=== PATIENT | female | born 1945 | race African-American/Black ===

== ENCOUNTER 2017-07-29 06:41 | Emergency (ER) | payer MEDICARE, MEDICAID ==
[~2017-07-29] VITALS: Ht 154.9 cm; Wt 104.5 kg
[~2017-07-29 06:41] MED LIST: BACL10TA PO; DOCU250C91 PO; DULO30CA2 PO; ENOX40DI9 SQ; FURO40 PO; GABA-533 PO; OXYC-530 PO; PANT40TA PO; RISP.5 PO; ZOLP5 PO
[2017-07-29] MEDS ORDERED: TRAZ-147 PO (06:53)
[2017-07-29] MEDS ORDERED: HYDR-4061 PO (06:53)
[2017-07-29] MEDS ORDERED: MORPHINE SULFATE 4 MG/ML SYRINGE IM ONE (07:30)
[2017-07-29] MEDS ORDERED: LIDOCAINE HCL 5% TRANSDERMAL PATCH TD ONE (08:30)
[2017-07-29 09:44] VITALS: BP 130/72
== END 2017-07-29 09:57 | disposition home or self-care (01) ==
LOC: EMS 06:42
DX: M79.604 Pain in right leg (principal); M79.605 Pain in left leg; Z88.6 Allergy status to analgesic agent
CPT/HCPCS: 96372; 99283; J2270

== ENCOUNTER 2017-08-05 11:36 | Emergency (ER) | payer MEDICARE, MEDICAID ==
[~2017-08-05] VITALS: Ht 154.9 cm; Wt 107.3 kg
[~2017-08-05 11:36] MED LIST changes: -ENOX40DI9 SQ; +HYDR-4061 PO; -OXYC-530 PO; +TRAZ-147 PO; -ZOLP5 PO
[2017-08-05 12:51] LABS: BASOPHILS % (AUTO) 0.8 % (0.0-2.0); EOSINOPHILS % (AUTO) 2.4 % (1.0-6.0); HEMATOCRIT 38.3 % (36-46); HEMOGLOBIN 12.8 g/dL (12.0-16.0); LYMPHOCYTES # (AUTO) 2.3 K/uL (1.0-4.8); LYMPHOCYTES % (AUTO) 22.2 % (22.0-44.0); MEAN CORPUSCULAR HEMOGLOBIN 30.6 pg (26.0-34.0); MEAN CORPUSCULAR HGB CONC 33.4 G/dL (31.0-37.0); MEAN CORPUSCULAR VOLUME 91 fL (80-100); MONOCYTES # (AUTO) 0.3 K/uL (0.1-1.0); MONOCYTES % (AUTO) 2.5 % (2.0-9.0); NEUTROPHILS # (AUTO) 7.4 K/uL (1.8-7.7); NEUTROPHILS % (AUTO) 72.1 % (40.0-70.0); PLATELET COUNT (AUTO) 290 K/uL (150-450); RED BLOOD CELL COUNT(AUTO) 4.19 MIL/uL (4.00-5.20); RED CELL DISTRIBUTION WIDTH 16.3 % (11.5-14.5); WHITE BLOOD COUNT (AUTO) 10.3 K/uL (4.5-11.0)
[2017-08-05 12:59] LABS: ANION GAP 8 mmol/L (8-16); CALCIUM, TOTAL 9.3 mg/dL (8.8-10.5); CARBON DIOXIDE 28 mmol/L (22-29); CHLORIDE 107 mmol/L (98-107); CREATININE 0.74 mg/dL (0.60-1.30); GLOMERULAR FILTR. RATE CALC > 60 mL/min (>60); POTASSIUM 3.9 mmol/L (3.5-5.1); SODIUM SERUM 143 mmol/L (136-145); UREA NITROGEN, BLOOD 6 mg/dL (7-18)
[2017-08-05 13:05] LABS: ALANINE AMINOTRANSFERASE 19 U/L (12-78); ALBUMIN 3.3 g/dL (3.4-5.0); ASPARTATE AMINOTRANSFERASE 11 U/L (15-37); BILIRUBIN,TOTAL 0.2 mg/dL (0.1-1.0)
[2017-08-05] MEDS ORDERED: PHENYTOIN SODIUM 1,000 MG in SODIUM CHLORIDE 0.9% 150 ML IV ONE (13:30)
[2017-08-05] MEDS ORDERED: SODIUM CHLORIDE 0.9% 1,000 ML IV ONE (13:30)
[2017-08-05 16:53] LABS: APPEARANCE,URINE CLOUDY (CLEAR); GLUCOSE, URINE (UA) NEGATIVE (NEGATIVE); KETONES,URINE NEGATIVE (NEGATIVE); LEUKOCYTE ESTERASE ,URINE LARGE (NEGATIVE); OCCULT BLOOD,URINE SMALL (NEGATIVE); PROTEIN,URINE NEGATIVE (NEGATIVE)
[2017-08-05 16:56] LABS: ADD UA MICROSCOPIC YES; WBC,URINE 51-100 /HPF (0-5)
[2017-08-05 16:57] LABS: SQUAMOUS EPITHELIAL CELL,UR Moderate /LPF (None Seen)
[2017-08-05 19:06] VITALS: BP 152/80
[2017-08-05] MEDS ORDERED: TEMA7.5C17 PO (21:09)
== END 2017-08-05 19:19 | disposition home or self-care (01) ==
LOC: EMS 11:38
DX: G40.909 Epilepsy, unspecified, not intractable, without status epilepticus (principal); N39.0 Urinary tract infection, site not specified; M79.7 Fibromyalgia; F20.9 Schizophrenia, unspecified; F32.9 Major depressive disorder, single episode, unspecified; M19.90 Unspecified osteoarthritis, unspecified site; Z88.6 Allergy status to analgesic agent
CPT/HCPCS: 36415; 70450; 80053; 80307; 81001; 85025; 87077; 87086; 87186; 93005; 96365; 99285; J1165; J7030; J7050

== ENCOUNTER 2017-08-05 21:03 | Emergency (ER) | payer MEDICARE, MEDICAID ==
[~2017-08-05] VITALS: Ht 154.9 cm; Wt 107.3 kg
[2017-08-05] MEDS ORDERED: TEMA7.5C17 PO (21:09)
[2017-08-05 22:34] LABS: APPEARANCE,URINE TURBID (CLEAR); GLUCOSE, URINE (UA) NEGATIVE (NEGATIVE); KETONES,URINE NEGATIVE (NEGATIVE); LEUKOCYTE ESTERASE ,URINE LARGE (NEGATIVE); OCCULT BLOOD,URINE MODERATE (NEGATIVE); PH,URINE 7.5 (5.0-8.0); PROTEIN,URINE TRACE (NEGATIVE)
[2017-08-05 22:37] LABS: GLUCOSE,POINT OF CARE 82 MG/DL (70-110)
[2017-08-05 22:41] LABS: ANION GAP 8 mmol/L (8-16); CALCIUM, TOTAL 9.4 mg/dL (8.8-10.5); CARBON DIOXIDE 28 mmol/L (22-29); CHLORIDE 108 mmol/L (98-107); CREATININE 0.82 mg/dL (0.60-1.30); GLOMERULAR FILTR. RATE CALC > 60 mL/min (>60); SODIUM SERUM 144 mmol/L (136-145); UREA NITROGEN, BLOOD 6 mg/dL (7-18)
[2017-08-05 22:42] LABS: BASOPHILS % (AUTO) 0.6 % (0.0-2.0); EOSINOPHILS % (AUTO) 2.8 % (1.0-6.0); HEMATOCRIT 40.7 % (36-46); HEMOGLOBIN 13.3 g/dL (12.0-16.0); LYMPHOCYTES # (AUTO) 2.3 K/uL (1.0-4.8); LYMPHOCYTES % (AUTO) 21.8 % (22.0-44.0); MEAN CORPUSCULAR HEMOGLOBIN 30.3 pg (26.0-34.0); MEAN CORPUSCULAR HGB CONC 32.8 G/dL (31.0-37.0); MEAN CORPUSCULAR VOLUME 93 fL (80-100); MONOCYTES # (AUTO) 0.4 K/uL (0.1-1.0); NEUTROPHILS # (AUTO) 7.4 K/uL (1.8-7.7); NEUTROPHILS % (AUTO) 70.8 % (40.0-70.0); PLATELET COUNT (AUTO) 261 K/uL (150-450); RED CELL DISTRIBUTION WIDTH 16.5 % (11.5-14.5); WHITE BLOOD COUNT (AUTO) 10.5 K/uL (4.5-11.0)
[2017-08-05 22:46] LABS: WBC,URINE >100 /HPF (0-5)
[2017-08-05 22:47] LABS: ALANINE AMINOTRANSFERASE 19 U/L (12-78); ALBUMIN 3.3 g/dL (3.4-5.0); ASPARTATE AMINOTRANSFERASE 13 U/L (15-37); BILIRUBIN,TOTAL 0.3 mg/dL (0.1-1.0); SQUAMOUS EPITHELIAL CELL,UR Few /LPF (None Seen); TOTAL PROTEIN, SERUM 7.1 g/dL (6.4-8.2)
[2017-08-06 00:46] VITALS: BP 126/69
== END 2017-08-06 01:41 | disposition home or self-care (01) ==
LOC: EMS 21:05
DX: T40.2X1A Poisoning by other opioids, accidental (unintentional), initial encounter (principal); F17.210 Nicotine dependence, cigarettes, uncomplicated; Z88.6 Allergy status to analgesic agent; Y92.89 Other specified places as the place of occurrence of the external cause
CPT/HCPCS: 36415; 51701; 80053; 80307; 81001; 82948; 82962; 84484; 85025; 87077; 87086; 87186; 93005; 99285; G0480

== ENCOUNTER 2017-09-29 16:16 | Inpatient (IN) | payer MEDICARE, OTHER ==
[~2017-09-29] VITALS: Ht 157.5 cm; Wt 105.2 kg
[~2017-09-29 16:16] MED LIST changes: +TEMA7.5C17 PO
[2017-09-29 16:41] VITALS: BP 134/59
[2017-09-29 18:44] LABS: BASOPHILS % (AUTO) 0.4 % (0.0-2.0); EOSINOPHILS % (AUTO) 5.1 % (1.0-6.0); HEMOGLOBIN 13.1 g/dL (12.0-16.0); LYMPHOCYTES # (AUTO) 2.5 K/uL (1.0-4.8); LYMPHOCYTES % (AUTO) 29.5 % (22.0-44.0); MEAN CORPUSCULAR HEMOGLOBIN 30.7 pg (26.0-34.0); MEAN CORPUSCULAR HGB CONC 33.5 G/dL (31.0-37.0); MEAN CORPUSCULAR VOLUME 91 fL (80-100); MONOCYTES # (AUTO) 0.4 K/uL (0.1-1.0); MONOCYTES % (AUTO) 4.2 % (2.0-9.0); NEUTROPHILS # (AUTO) 5.1 K/uL (1.8-7.7); NEUTROPHILS % (AUTO) 60.8 % (40.0-70.0); PLATELET COUNT (AUTO) 251 K/uL (150-450); RED BLOOD CELL COUNT(AUTO) 4.27 MIL/uL (4.00-5.20); RED CELL DISTRIBUTION WIDTH 15.1 % (11.5-14.5); WHITE BLOOD COUNT (AUTO) 8.4 K/uL (4.5-11.0)
[2017-09-29 19:30] LABS: ALANINE AMINOTRANSFERASE 15 U/L (12-78); ALBUMIN 3.7 g/dL (3.4-5.0); ANION GAP 6 mmol/L (8-16); ASPARTATE AMINOTRANSFERASE 13 U/L (15-37); BILIRUBIN,TOTAL 0.3 mg/dL (0.1-1.0); CALCIUM, TOTAL 9.7 mg/dL (8.8-10.5); CARBON DIOXIDE 28 mmol/L (22-29); CHLORIDE 105 mmol/L (98-107); GLOMERULAR FILTR. RATE CALC > 60 mL/min (>60); POTASSIUM 4.1 mmol/L (3.5-5.1); SODIUM SERUM 139 mmol/L (136-145); THYROID STIMULATING HORMONE 0.86 uIU/mL (0.36-3.74); TOTAL PROTEIN, SERUM 7.5 g/dL (6.4-8.2); UREA NITROGEN, BLOOD 13 mg/dL (7-18)
[2017-09-29 20:07] VITALS: BP 122/75
[2017-09-29 20:12] LABS: GLUCOSE,POINT OF CARE 103 MG/DL (70-110)
[2017-09-29] MEDS: DOCUSATE SODIUM 250 MG CAPSULE PO SCH (20:25)
[2017-09-29] MEDS: RisperiDONE 0.5 MG TABLET PO SCH (20:25)
[2017-09-29] MEDS: GABAPENTIN 400 MG CAPSULE PO SCH (20:25)
[2017-09-29] MEDS: TEMAZEPAM 7.5 MG CAPSULE PO PRN (20:49)
[2017-09-30 00:02] VITALS: BP 123/58
[2017-09-30 05:13] VITALS: BP 115/63
[2017-09-30 07:01] VITALS: BP 112/73
[2017-09-30] MEDS: DULoxetine HCL 30 MG CAPSULE PO SCH (08:40)
[2017-09-30] MEDS: GABAPENTIN 400 MG CAPSULE PO SCH ×3 (08:41→21:33)
[2017-09-30] MEDS: PANTOPRAZOLE SODIUM 40 MG DR TABLET PO SCH (08:41)
[2017-09-30] MEDS: DOCUSATE SODIUM 250 MG CAPSULE PO SCH ×2 (08:41→21:20)
[2017-09-30] MEDS: RisperiDONE 0.5 MG TABLET PO SCH ×2 (08:41→21:19)
[2017-09-30] MEDS: FUROSEMIDE 20 MG TABLET PO SCH (08:41)
[2017-09-30 11:17] VITALS: BP 104/66
[2017-09-30] MEDS: HYDROCODONE/ACETAMINOPHEN 5-325 MG TABLET PO PRN (13:44)
[2017-09-30] MEDS: ACETAMINOPHEN 325 MG TABLET PO PRN ×2 (13:44→17:51)
[2017-09-30 15:01] VITALS: BP 110/66
[2017-09-30 20:53] VITALS: BP 111/53
[2017-09-30] MEDS: TEMAZEPAM 7.5 MG CAPSULE PO PRN (21:19)
[2017-10-01 00:28] VITALS: BP 118/53
[2017-10-01 05:03] VITALS: BP 116/57
[2017-10-01 07:24] VITALS: BP 116/67
[2017-10-01] MEDS: DOCUSATE SODIUM 250 MG CAPSULE PO SCH ×2 (08:18→20:04)
[2017-10-01] MEDS: RisperiDONE 0.5 MG TABLET PO SCH ×2 (08:18→20:04)
[2017-10-01] MEDS: DULoxetine HCL 30 MG CAPSULE PO SCH (08:18)
[2017-10-01] MEDS: GABAPENTIN 400 MG CAPSULE PO SCH ×3 (08:18→20:04)
[2017-10-01] MEDS: PANTOPRAZOLE SODIUM 40 MG DR TABLET PO SCH (08:18)
[2017-10-01] MEDS: FUROSEMIDE 20 MG TABLET PO SCH (08:19)
[2017-10-01] MEDS: HYDROCODONE/ACETAMINOPHEN 5-325 MG TABLET PO PRN ×2 (08:23→16:00)
[2017-10-01 13:02] VITALS: BP 118/54
[2017-10-01 20:05] VITALS: BP 118/54
[2017-10-01] MEDS: TEMAZEPAM 7.5 MG CAPSULE PO PRN (20:45)
[2017-10-02 00:10] VITALS: BP 117/56
[2017-10-02] MEDS: HYDROCODONE/ACETAMINOPHEN 5-325 MG TABLET PO PRN ×2 (00:25→09:19)
[2017-10-02 04:44] VITALS: BP 116/57
[2017-10-02 07:15] VITALS: BP 130/65
[2017-10-02] MEDS: RisperiDONE 0.5 MG TABLET PO SCH (09:09)
[2017-10-02] MEDS: DULoxetine HCL 30 MG CAPSULE PO SCH (09:10)
[2017-10-02] MEDS: PANTOPRAZOLE SODIUM 40 MG DR TABLET PO SCH (09:10)
[2017-10-02] MEDS: FUROSEMIDE 20 MG TABLET PO SCH (09:10)
[2017-10-02] MEDS: DOCUSATE SODIUM 250 MG CAPSULE PO SCH (09:10)
[2017-10-02] MEDS: GABAPENTIN 400 MG CAPSULE PO SCH (09:11)
[2017-10-02 11:37] VITALS: BP 120/60
[2017-10-02 14:28] LABS: GLUCOSE,POINT OF CARE 100 MG/DL (70-110)
[2017-10-02 15:25] VITALS: BP 119/62
== END 2017-10-02 16:00 | disposition home or self-care (01) | DRG 948 ==
LOC: 6N 16:40
PROVIDERS: ADMIT Internal Medicine; ATTEND Internal Medicine
DX: R53.1 Weakness (principal); E66.01 Morbid (severe) obesity due to excess calories; I48.91 Unspecified atrial fibrillation; Q78.0 Osteogenesis imperfecta; J44.9 Chronic obstructive pulmonary disease, unspecified; F20.9 Schizophrenia, unspecified; Z68.41 Body mass index [BMI] 40.0-44.9, adult; R62.7 Adult failure to thrive; R29.6 Repeated falls; G47.00 Insomnia, unspecified; K21.9 Gastro-esophageal reflux disease without esophagitis; M19.90 Unspecified osteoarthritis, unspecified site; I10 Essential (primary) hypertension; M54.16 Radiculopathy, lumbar region; F31.9 Bipolar disorder, unspecified; Z96.653 Presence of artificial knee joint, bilateral; F17.200 Nicotine dependence, unspecified, uncomplicated; Z90.710 Acquired absence of both cervix and uterus; Z98.1 Arthrodesis status; Z82.49 Family history of ischemic heart disease and other diseases of the circulatory system; Z79.899 Other long term (current) drug therapy; Z88.6 Allergy status to analgesic agent
CPT/HCPCS: 71020; 82962; 83735; 84443; 87086; 97162; 97166; 97530; 97535

== ENCOUNTER 2018-08-30 11:56 | Inpatient (IN) | payer MEDICARE, OTHER ==
[~2018-08-30 11:56] MED LIST changes: -ADV100 IH; -ALBU8HFA IH; -AZIT250T9 PO; -KDUR10 PO; -PRED5 PO
[2018-08-30 13:00] VITALS: BP 131/67
[2018-08-30] MEDS ORDERED: ALBUTEROL SULFATE 2.5 MG/0.5 ML NEB SOLUTION NEB PRN ×2 (13:45→15:30)
[2018-08-30] MEDS: ALBUTEROL SULFATE 2.5 MG/0.5 ML NEB SOLUTION NEB SCH ×2 (14:33→20:28)
[2018-08-30] MEDS: IPRATROPIUM BROMIDE 0.5 MG/2.5 ML NEB SOLUTION NEB SCH ×2 (14:34→20:28)
[2018-08-30] MEDS ORDERED: ACETAMINOPHEN 325 MG TABLET PO PRN (15:30)
[2018-08-30] MEDS ORDERED: ONDANSETRON HCL 4 MG/2 ML VIAL IVP PRN (15:30)
[2018-08-30] MEDS ORDERED: IPRATROPIUM BROMIDE 0.5 MG/2.5 ML NEB SOLUTION NEB PRN (15:30)
[2018-08-30] MEDS ORDERED: BISACODYL 10 MG RECTAL RECTAL SUPPOSITORY PR PRN (15:30)
[2018-08-30] MEDS ORDERED: MORPHINE SULFATE 2 MG/ML SYRINGE IVP PRN (15:30)
[2018-08-30] MEDS ORDERED: HYDROCODONE/ACETAMINOPHEN 5-325 MG TABLET PO PRN (15:30)
[2018-08-30] MEDS ORDERED: MAGNESIUM HYDROXIDE SUSPENSION 30 ML UDCUP PO PRN (15:30)
[2018-08-30 16:20] LABS: BASOPHILS % (AUTO) 1.2 % (0.0-2.0); EOSINOPHILS % (AUTO) 4.8 % (1.0-6.0); HEMOGLOBIN 13.8 g/dL (12.0-16.0); LYMPHOCYTES # (AUTO) 2.3 K/uL (1.0-4.8); LYMPHOCYTES % (AUTO) 33.1 % (22.0-44.0); MEAN CORPUSCULAR HEMOGLOBIN 29.7 pg (26.0-34.0); MEAN CORPUSCULAR VOLUME 90 fL (80-100); MONOCYTES # (AUTO) 0.5 K/uL (0.1-1.0); MONOCYTES % (AUTO) 7.8 % (2.0-9.0); NEUTROPHILS # (AUTO) 3.6 K/uL (1.8-7.7); NEUTROPHILS % (AUTO) 53.1 % (40.0-70.0); PLATELET COUNT (AUTO) 341 K/uL (150-450); RED BLOOD CELL COUNT(AUTO) 4.66 MIL/uL (4.00-5.20); RED CELL DISTRIBUTION WIDTH 16.7 % (11.5-14.5)
[2018-08-30 16:23] VITALS: BP 143/75
[2018-08-30] MEDS: HEPARIN SODIUM,PORCINE 5,000 UNITS/ML VIAL SQ SCH (16:29)
[2018-08-30 16:52] LABS: ANION GAP 11 mmol/L (8-16); CALCIUM, TOTAL 9.7 mg/dL (8.8-10.5); CARBON DIOXIDE 29 mmol/L (22-29); CHLORIDE 102 mmol/L (98-107); CREATININE 0.79 mg/dL (0.60-1.30); GLOMERULAR FILTR. RATE CALC > 60 mL/min (>60); GLUCOSE,RANDOM 100 mg/dL (70-110); POTASSIUM 3.2 mmol/L (3.5-5.1); SODIUM SERUM 142 mmol/L (136-145); UREA NITROGEN, BLOOD 3 mg/dL (7-18)
[2018-08-30 16:58] LABS: ALANINE AMINOTRANSFERASE 30 U/L (12-78); ALBUMIN 3.3 g/dL (3.4-5.0); ALKALINE PHOSPHATASE 83 U/L (46-116); ASPARTATE AMINOTRANSFERASE 22 U/L (15-37); BILIRUBIN,TOTAL 0.4 mg/dL (0.1-1.0); TOTAL PROTEIN, SERUM 7.6 g/dL (6.4-8.2)
[2018-08-30] MEDS ORDERED: SODIUM CHLORIDE 0.9% 500 ML IV ONE (18:30)
[2018-08-30] MEDS: AZITHROMYCIN 500 MG/NS 250 ML IV SCH (18:32)
[2018-08-30 19:35] VITALS: BP 146/60
[2018-08-30] MEDS ORDERED: ALBUTEROL SULFATE 2.5 MG/0.5 ML NEB SOLUTION NEB SCH (20:00)
[2018-08-30] MEDS ORDERED: IPRATROPIUM BROMIDE 0.5 MG/2.5 ML NEB SOLUTION NEB SCH (20:00)
[2018-08-30] MEDS: DOCUSATE SODIUM 100 MG CAPSULE PO SCH (21:51)
[2018-08-30] MEDS: ZOLPIDEM TARTRATE 5 MG TABLET PO PRN (22:11)
[2018-08-31] VITALS (7 sets, daily range): BP systolic 119–146; BP diastolic 58–81
[2018-08-31] MEDS: HEPARIN SODIUM,PORCINE 5,000 UNITS/ML VIAL SQ SCH ×4 (00:21→23:25)
[2018-08-31] MEDS: MethylPREDNISolone SOD SUCC 125 MG/2 ML VIAL IVP SCH ×4 (00:22→23:25)
[2018-08-31] MEDS: IPRATROPIUM BROMIDE 0.5 MG/2.5 ML NEB SOLUTION NEB SCH ×4 (01:40→20:01)
[2018-08-31] MEDS: ALBUTEROL SULFATE 2.5 MG/0.5 ML NEB SOLUTION NEB SCH ×4 (01:40→20:01)
[2018-08-31] MEDS ORDERED: PNEUMOCOCCAL VACCINE POLYVALENT 0.5 ML VIAL [PPSV23] IM ONE (05:30)
[2018-08-31 07:44] LABS: APPEARANCE,URINE CLEAR (CLEAR); BILIRUBIN,URINE NEGATIVE (NEGATIVE); GLUCOSE, URINE (UA) NEGATIVE (NEGATIVE); KETONES,URINE NEGATIVE (NEGATIVE); LEUKOCYTE ESTERASE ,URINE NEGATIVE (NEGATIVE); NITRATE,URINE NEGATIVE (NEGATIVE); OCCULT BLOOD,URINE NEGATIVE (NEGATIVE); PROTEIN,URINE NEGATIVE (NEGATIVE); UROBILINOGEN,URINE 0.2 mg/dL (<=1.0)
[2018-08-31] MEDS: DOCUSATE SODIUM 100 MG CAPSULE PO SCH ×2 (08:05→19:44)
[2018-08-31] MEDS: PANTOPRAZOLE SODIUM 40 MG/VIAL IVP SCH (08:05)
[2018-08-31] MEDS ORDERED: POTASSIUM CHLORIDE 20 MEQ ER TABLET PO ONE (11:30)
[2018-08-31] MEDS: GuaiFENesin SR 600 MG ER TABLET PO SCH ×2 (14:33→19:44)
[2018-08-31] MEDS: AZITHROMYCIN 500 MG/NS 250 ML IV SCH (18:48)
[2018-08-31] MEDS: ZOLPIDEM TARTRATE 5 MG TABLET PO PRN (19:44)
[2018-08-31] MEDS: BENZONATATE 100 MG CAPSULE PO SCH (19:44)
[2018-09-01] MEDS: ALBUTEROL SULFATE 2.5 MG/0.5 ML NEB SOLUTION NEB SCH ×3 (02:54→14:30)
[2018-09-01] MEDS: IPRATROPIUM BROMIDE 0.5 MG/2.5 ML NEB SOLUTION NEB SCH ×3 (02:55→14:30)
[2018-09-01 05:22] VITALS: BP 128/52
[2018-09-01 06:13] LABS: BASOPHILS % (AUTO) 0.5 % (0.0-2.0); EOSINOPHILS % (AUTO) 0 % (1.0-6.0); HEMATOCRIT 39.5 % (36-46); HEMOGLOBIN 13.3 g/dL (12.0-16.0); LYMPHOCYTES # (AUTO) 1.2 K/uL (1.0-4.8); LYMPHOCYTES % (AUTO) 11.1 % (22.0-44.0); MEAN CORPUSCULAR HGB CONC 33.6 G/dL (31.0-37.0); MEAN CORPUSCULAR VOLUME 89 fL (80-100); MONOCYTES # (AUTO) 0.3 K/uL (0.1-1.0); MONOCYTES % (AUTO) 2.7 % (2.0-9.0); NEUTROPHILS # (AUTO) 9.1 K/uL (1.8-7.7); PLATELET COUNT (AUTO) 348 K/uL (150-450); RED BLOOD CELL COUNT(AUTO) 4.41 MIL/uL (4.00-5.20); RED CELL DISTRIBUTION WIDTH 16.7 % (11.5-14.5)
[2018-09-01 06:15] LABS: NEUTROPHILS % (AUTO) 85.7 % (40.0-70.0)
[2018-09-01 06:24] LABS: ALANINE AMINOTRANSFERASE 26 U/L (12-78); ALKALINE PHOSPHATASE 70 U/L (46-116); ANION GAP 6 mmol/L (8-16); ASPARTATE AMINOTRANSFERASE 15 U/L (15-37); BILIRUBIN,TOTAL 0.2 mg/dL (0.1-1.0); CALCIUM, TOTAL 9.9 mg/dL (8.8-10.5); CARBON DIOXIDE 29 mmol/L (22-29); CHLORIDE 103 mmol/L (98-107); CREATININE 0.86 mg/dL (0.60-1.30); GLUCOSE,RANDOM 179 mg/dL (70-110); POTASSIUM 3.7 mmol/L (3.5-5.1); SODIUM SERUM 138 mmol/L (136-145); TOTAL PROTEIN, SERUM 7.2 g/dL (6.4-8.2); UREA NITROGEN, BLOOD 9 mg/dL (7-18)
[2018-09-01 06:26] LABS: GLOMERULAR FILTR. RATE CALC > 60 mL/min (>60)
[2018-09-01 07:10] VITALS: BP 108/54
[2018-09-01] MEDS: PANTOPRAZOLE SODIUM 40 MG/VIAL IVP SCH (08:12)
[2018-09-01] MEDS: HEPARIN SODIUM,PORCINE 5,000 UNITS/ML VIAL SQ SCH (08:12)
[2018-09-01] MEDS: BENZONATATE 100 MG CAPSULE PO SCH (08:12)
[2018-09-01] MEDS: GuaiFENesin SR 600 MG ER TABLET PO SCH (08:12)
[2018-09-01] MEDS: MethylPREDNISolone SOD SUCC 125 MG/2 ML VIAL IVP SCH (08:12)
[2018-09-01] MEDS: DOCUSATE SODIUM 100 MG CAPSULE PO SCH (08:12)
[2018-09-01] MEDS ORDERED: MORPHINE SULFATE 4 MG/ML SYRINGE IVP PRN (11:15)
[2018-09-01 12:10] VITALS: BP 122/56
[2018-09-01] MEDS ORDERED: ALBU8HFA IH (14:01)
[2018-09-01] MEDS ORDERED: KDUR10 PO (14:03)
[2018-09-01] MEDS ORDERED: PRED5 PO (14:06)
[2018-09-01] MEDS ORDERED: AZIT250T9 PO (14:07)
[2018-09-01] MEDS ORDERED: ADV100 IH (14:08)
== END 2018-09-01 17:10 | disposition home or self-care (01) | DRG 190 ==
LOC: 6N 13:30
PROVIDERS: ADMIT Hospitalist; ATTEND Hospitalist
DX: J44.1 Chronic obstructive pulmonary disease with (acute) exacerbation (principal); J18.9 Pneumonia, unspecified organism; J44.0 Chronic obstructive pulmonary disease with (acute) lower respiratory infection; J20.9 Acute bronchitis, unspecified; F20.9 Schizophrenia, unspecified; F32.9 Major depressive disorder, single episode, unspecified; G62.9 Polyneuropathy, unspecified; G47.00 Insomnia, unspecified; Z88.8 Allergy status to other drugs, medicaments and biological substances; Z87.891 Personal history of nicotine dependence; Z79.899 Other long term (current) drug therapy
CPT/HCPCS: 87040; 93306; 94640; C9113; G0378; J0456; J1644; J2930; J7040

== ENCOUNTER → 2018-08-30 | Outpatient (CLI) | payer MEDICARE, OTHER ==
[~2018-08-30] VITALS: Ht 162.6 cm; Wt 123.0 kg
[~2018-08-30] MED LIST changes: +ADV100 IH; +ALBU8HFA IH; +AZIT250T9 PO; +KDUR10 PO; +PRED5 PO; -TRAZ-147 PO; +TRAZ-220 PO
[2018-08-30 11:02] VITALS: BP 153/76
== END | disposition home or self-care (01) ==
LOC: SRCNTR 10:54
PROVIDERS: ATTEND Hospitalist
DX: J44.1 Chronic obstructive pulmonary disease with (acute) exacerbation (principal); J18.9 Pneumonia, unspecified organism; G62.9 Polyneuropathy, unspecified; G47.00 Insomnia, unspecified; F17.200 Nicotine dependence, unspecified, uncomplicated
CPT/HCPCS: G0463

== ENCOUNTER → 2018-09-06 | Outpatient (CLI) | payer MEDICARE, OTHER ==
[~2018-09-06] VITALS: Ht 162.6 cm; Wt 125.5 kg
[~2018-09-06] MED LIST changes: +ADV100 IH; +ALBU8HFA IH; +AZIT250T9 PO; +KDUR10 PO; +PRED5 PO
[2018-09-06 11:04] VITALS: BP 125/69
== END | disposition home or self-care (01) ==
LOC: SRCNTR 10:59
PROVIDERS: ATTEND Hospitalist
DX: J44.1 Chronic obstructive pulmonary disease with (acute) exacerbation (principal); J18.9 Pneumonia, unspecified organism; G47.00 Insomnia, unspecified; G62.9 Polyneuropathy, unspecified; F41.9 Anxiety disorder, unspecified; E66.9 Obesity, unspecified; Z68.42 Body mass index [BMI] 45.0-49.9, adult; M79.7 Fibromyalgia; M19.90 Unspecified osteoarthritis, unspecified site; F17.200 Nicotine dependence, unspecified, uncomplicated
CPT/HCPCS: G0463

== ENCOUNTER 2018-09-21 06:50 | Emergency (ER) | payer MEDICARE, OTHER ==
[~2018-09-21] VITALS: Ht 162.6 cm; Wt 127.3 kg
[2018-09-21 08:30] VITALS: BP 111/73
== END 2018-09-21 09:06 | disposition home or self-care (01) ==
LOC: EMS 06:50
DX: R51 Headache (principal); M54.5 Low back pain; F17.210 Nicotine dependence, cigarettes, uncomplicated; F32.9 Major depressive disorder, single episode, unspecified; F20.9 Schizophrenia, unspecified; Z88.6 Allergy status to analgesic agent; Z79.899 Other long term (current) drug therapy; W06.XXXA Fall from bed, initial encounter; Y93.89 Activity, other specified; Y92.128 Other place in nursing home as the place of occurrence of the external cause; Y99.8 Other external cause status
CPT/HCPCS: 70450; 72100

== ENCOUNTER 2019-12-14 11:51 | Inpatient (IN) | payer MEDICARE, MEDICAID ==
[~2019-12-14] VITALS: Ht 162.6 cm; Wt 118.0 kg
[2019-12-14] MEDS ORDERED: MULT-1203 PO (12:24)
[2019-12-14] MEDS ORDERED: BENZ-51 PO (12:24)
[2019-12-14] MEDS ORDERED: FAMO20 PO (12:24)
[2019-12-14] MEDS ORDERED: APIX2.5T PO (12:24)
[2019-12-14] MEDS ORDERED: OXYC10TA59 PO (12:24)
[2019-12-14] MEDS ORDERED: TEMA15CA PO (12:24)
[2019-12-14 13:51] LABS: MEAN CORPUSCULAR VOLUME 89 fL (80-100); RED BLOOD CELL COUNT(AUTO) 4.37 MIL/uL (4.00-5.20)
[2019-12-14 13:52] LABS: BAND NEUTROPHILS % (MANUAL) 0 % (0-5); HEMATOCRIT 38.9 % (36-46); HEMOGLOBIN 12.7 g/dL (12.0-16.0); MEAN CORPUSCULAR HGB CONC 32.5 G/dL (31.0-37.0); PLATELET COUNT (AUTO) 249 K/uL (150-450); RED CELL DISTRIBUTION WIDTH 14.8 % (11.5-14.5)
[2019-12-14 13:56] LABS: ANION GAP 9 mmol/L (8-16); CALCIUM, TOTAL 9.9 mg/dL (8.8-10.5); CARBON DIOXIDE 29 mmol/L (22-29); CHLORIDE 104 mmol/L (98-107); CREATININE 0.96 mg/dL (0.60-1.30); GLUCOSE,RANDOM 88 mg/dL (70-110); POTASSIUM 3.8 mmol/L (3.5-5.1); SODIUM SERUM 142 mmol/L (136-145); UREA NITROGEN, BLOOD 9 mg/dL (7-18)
[2019-12-14 14:02] LABS: ALANINE AMINOTRANSFERASE 23 U/L (12-78); ALBUMIN 3.4 g/dL (3.4-5.0); ALKALINE PHOSPHATASE 105 U/L (46-116); ASPARTATE AMINOTRANSFERASE 18 U/L (15-37); BILIRUBIN,TOTAL 0.3 mg/dL (0.1-1.0); TOTAL PROTEIN, SERUM 7.4 g/dL (6.4-8.2)
[2019-12-14 14:05] LABS: GLOMERULAR FILTR. RATE CALC > 60 mL/min (>60)
[2019-12-14 14:20] LABS: B-TYPE NATRIURETIC PEPTIDE 28 pg/mL (0-100)
[2019-12-14 14:27] LABS: EOSINOPHILS % (MANUAL) 5 % (1-6); LYMPHOCYTES % (MANUAL) 28 % (22-44); MONOCYTES % (MANUAL) 5 % (2-9); SEGMENTED NEUTROPHILS % 62 % (40-70)
[2019-12-14] MEDS ORDERED: LORazepam 1 MG TABLET PO ONE (15:45)
[2019-12-14] MEDS ORDERED: OXYC5 PO (15:48)
[2019-12-14] MEDS ORDERED: LORazepam 2 MG TABLET PO ONE (16:15)
[2019-12-14] MEDS ORDERED: LORazepam 2 MG/ML VIAL ONE (16:51)
[2019-12-14] MEDS ORDERED: HALOPERIDOL LACTATE 5 MG/ML VIAL ONE (16:51)
[2019-12-14] MEDS ORDERED: DiphenhydrAMINE HCL 50 MG/ML VIAL ONE (16:51)
[2019-12-14] MEDS ORDERED: HALOPERIDOL 5 MG TABLET PO ONE (17:00)
[2019-12-14] MEDS ORDERED: DiphenhydrAMINE HCL 25 MG CAPSULE PO ONE (17:00)
[2019-12-14] MEDS ORDERED: LORazepam 2 MG/ML VIAL IM ONE (18:00)
[2019-12-14] MEDS ORDERED: DiphenhydrAMINE HCL 50 MG/ML VIAL IM ONE (18:00)
[2019-12-14] MEDS ORDERED: HALOPERIDOL LACTATE 5 MG/ML VIAL IM ONE (18:00)
[2019-12-15] MEDS ORDERED: ALBUTEROL SULFATE HFA 90 MCG/PUFF 8 GM INHALER IH PRN (09:00)
[2019-12-15] MEDS ORDERED: DOCUSATE SODIUM 100 MG CAPSULE PO PRN (09:00)
[2019-12-15] MEDS ORDERED: CloNIDine HCL 0.1 MG TABLET PO PRN (09:00)
[2019-12-15] MEDS ORDERED: PETROLATUM,WHITE 28 GM JELLY TP PRN (09:00)
[2019-12-15] MEDS ORDERED: MAGNESIUM HYDROXIDE SUSPENSION 30 ML UDCUP PO PRN (09:00)
[2019-12-15] MEDS ORDERED: LOPERAMIDE HCL 2 MG CAPSULE PO PRN (09:00)
[2019-12-15] MEDS ORDERED: ONDANSETRON HCL 4 MG TABLET PO PRN (09:00)
[2019-12-15] MEDS ORDERED: MAG HYDROX/AL HYDROX/SIMETH ES 30 ML SUSPENSION UDCUP PO PRN (09:00)
[2019-12-15] MEDS ORDERED: NICOTINE 14 MG/24 HOUR PATCH TD PRN (09:00)
[2019-12-15 09:30] VITALS: BP 132/74
[2019-12-15] MEDS: APIXABAN 2.5 MG TABLET PO SCH ×3 (09:42→17:00)
[2019-12-15] MEDS: FAMOTIDINE 20 MG TABLET PO SCH ×3 (09:42→17:00)
[2019-12-15] MEDS ORDERED: PNEUMOCOCCAL VACCINE POLYVALENT 0.5 ML VIAL [PPSV23] IM ONE (12:45)
[2019-12-15 16:10] VITALS: BP 138/78
[2019-12-15 18:36] VITALS: BP 138/78
[2019-12-15 20:20] VITALS: BP 132/78
[2019-12-15] MEDS: OxyCODONE HCL 5 MG IR TABLET PO PRN (20:22)
[2019-12-15] MEDS: QUEtiapine FUMARATE 25 MG TABLET PO SCH (20:22)
[2019-12-16 01:40] VITALS: BP 117/66
[2019-12-16] MEDS: ZOLPIDEM TARTRATE 10 MG TABLET PO PRN (01:45)
[2019-12-16] MEDS: ACETAMINOPHEN 325 MG TABLET PO PRN (01:51)
[2019-12-16 08:11] VITALS: BP 155/64
[2019-12-16] MEDS: FAMOTIDINE 20 MG TABLET PO SCH ×2 (09:15→16:41)
[2019-12-16] MEDS: APIXABAN 2.5 MG TABLET PO SCH ×2 (09:15→16:41)
[2019-12-16] MEDS: GuaiFENesin/D-METHORPHAN [SUGAR-FREE] 200-20MG/10 ML SYRUP UDCUP PO PRN ×2 (09:44→21:00)
[2019-12-16 16:47] VITALS: BP 133/81
[2019-12-16 19:45] VITALS: BP 130/73
[2019-12-16] MEDS: QUEtiapine FUMARATE 25 MG TABLET PO SCH (20:35)
[2019-12-16] MEDS: OxyCODONE HCL 5 MG IR TABLET PO PRN (20:35)
[2019-12-16 20:45] VITALS: BP 133/73
[2019-12-16 21:45] VITALS: BP 130/73
[2019-12-17 04:40] VITALS: BP 105/60
[2019-12-17] MEDS: OxyCODONE HCL 5 MG IR TABLET PO PRN ×2 (04:44→18:23)
[2019-12-17] MEDS: APIXABAN 2.5 MG TABLET PO SCH ×2 (08:29→16:03)
[2019-12-17] MEDS: FAMOTIDINE 20 MG TABLET PO SCH ×2 (08:30→16:03)
[2019-12-17] MEDS: ACETAMINOPHEN 325 MG TABLET PO PRN (09:34)
[2019-12-17] MEDS: GuaiFENesin/D-METHORPHAN [SUGAR-FREE] 200-20MG/10 ML SYRUP UDCUP PO PRN ×2 (09:35→17:39)
[2019-12-17 14:07] VITALS: BP 130/94
[2019-12-17] MEDS: MUPIROCIN CALCIUM 2% 22 GM OINTMENT NASAL SCH (16:03)
[2019-12-17 16:05] VITALS: BP 115/67
[2019-12-17 18:23] VITALS: BP 129/78
[2019-12-17] MEDS: QUEtiapine FUMARATE 25 MG TABLET PO SCH (20:54)
[2019-12-18] MEDS: GuaiFENesin/D-METHORPHAN [SUGAR-FREE] 200-20MG/10 ML SYRUP UDCUP PO PRN ×3 (01:18→16:44)
[2019-12-18 03:55] VITALS: BP 105/60
[2019-12-18] MEDS: OxyCODONE HCL 5 MG IR TABLET PO PRN ×2 (04:01→16:45)
[2019-12-18 08:00] VITALS: BP 138/76
[2019-12-18] MEDS: MUPIROCIN CALCIUM 2% 22 GM OINTMENT NASAL SCH ×3 (08:19→16:16)
[2019-12-18] MEDS: FAMOTIDINE 20 MG TABLET PO SCH ×3 (08:19→16:16)
[2019-12-18] MEDS: APIXABAN 2.5 MG TABLET PO SCH ×3 (08:19→16:16)
[2019-12-18 09:46] VITALS: BP 138/76
[2019-12-18] MEDS: ACETAMINOPHEN 325 MG TABLET PO PRN ×2 (09:46→16:23)
[2019-12-18] MEDS: LORazepam 2 MG TABLET PO PRN (09:51)
[2019-12-18 16:14] VITALS: BP 120/65
[2019-12-18 16:18] VITALS: BP 120/65
[2019-12-18] MEDS: ZOLPIDEM TARTRATE 10 MG TABLET PO PRN (20:19)
[2019-12-18] MEDS: QUEtiapine FUMARATE 25 MG TABLET PO SCH (20:19)
[2019-12-19 00:25] VITALS: BP 117/75
[2019-12-19] MEDS: GuaiFENesin/D-METHORPHAN [SUGAR-FREE] 200-20MG/10 ML SYRUP UDCUP PO PRN ×3 (00:44→13:05)
[2019-12-19] MEDS: OxyCODONE HCL 5 MG IR TABLET PO PRN (00:44)
[2019-12-19 08:00] VITALS: BP 122/50
[2019-12-19] MEDS: FAMOTIDINE 20 MG TABLET PO SCH ×2 (08:17→17:11)
[2019-12-19] MEDS: FUROSEMIDE 20 MG TABLET PO SCH (08:17)
[2019-12-19] MEDS: MUPIROCIN CALCIUM 2% 22 GM OINTMENT NASAL SCH ×2 (08:17→17:14)
[2019-12-19] MEDS: APIXABAN 2.5 MG TABLET PO SCH ×2 (08:17→17:11)
[2019-12-19] MEDS: LORazepam 2 MG TABLET PO PRN (11:35)
[2019-12-19 15:51] VITALS: BP 121/82
[2019-12-19 17:51] VITALS: BP 121/82
[2019-12-19] MEDS: QUEtiapine FUMARATE 25 MG TABLET PO SCH (20:24)
[2019-12-19] MEDS: ZOLPIDEM TARTRATE 10 MG TABLET PO PRN (20:24)
[2019-12-20 01:50] VITALS: BP 128/78
[2019-12-20] MEDS: OxyCODONE HCL 5 MG IR TABLET PO PRN ×2 (01:55→14:45)
[2019-12-20] MEDS: GuaiFENesin/D-METHORPHAN [SUGAR-FREE] 200-20MG/10 ML SYRUP UDCUP PO PRN ×2 (06:13→13:19)
[2019-12-20 08:07] VITALS: BP 123/67
[2019-12-20] MEDS: FUROSEMIDE 20 MG TABLET PO SCH (08:12)
[2019-12-20] MEDS: APIXABAN 2.5 MG TABLET PO SCH ×2 (08:12→16:31)
[2019-12-20] MEDS: MUPIROCIN CALCIUM 2% 22 GM OINTMENT NASAL SCH ×2 (08:12→16:31)
[2019-12-20] MEDS: FAMOTIDINE 20 MG TABLET PO SCH ×2 (08:12→16:31)
[2019-12-20] MEDS: LORazepam 2 MG TABLET PO PRN (08:13)
[2019-12-20 14:45] VITALS: BP 118/69
[2019-12-20 16:00] VITALS: BP 113/75
[2019-12-20] MEDS: QUEtiapine FUMARATE 25 MG TABLET PO SCH (21:15)
[2019-12-21] MEDS: OxyCODONE HCL 5 MG IR TABLET PO PRN (00:24)
[2019-12-21 00:25] VITALS: BP 129/67
[2019-12-21] MEDS: GuaiFENesin/D-METHORPHAN [SUGAR-FREE] 200-20MG/10 ML SYRUP UDCUP PO PRN ×3 (00:25→17:33)
[2019-12-21] MEDS: ZOLPIDEM TARTRATE 10 MG TABLET PO PRN ×2 (00:25→20:58)
[2019-12-21] MEDS: ACETAMINOPHEN 325 MG TABLET PO PRN (04:59)
[2019-12-21] MEDS: APIXABAN 2.5 MG TABLET PO SCH ×2 (08:04→16:02)
[2019-12-21] MEDS: FUROSEMIDE 20 MG TABLET PO SCH (08:04)
[2019-12-21] MEDS: FAMOTIDINE 20 MG TABLET PO SCH ×2 (08:04→16:02)
[2019-12-21] MEDS: MUPIROCIN CALCIUM 2% 22 GM OINTMENT NASAL SCH ×2 (08:04→16:02)
[2019-12-21 08:50] VITALS: BP 135/73
[2019-12-21 16:10] VITALS: BP 127/77
[2019-12-21] MEDS: QUEtiapine FUMARATE 25 MG TABLET PO SCH (20:48)
[2019-12-22] MEDS: GuaiFENesin/D-METHORPHAN [SUGAR-FREE] 200-20MG/10 ML SYRUP UDCUP PO PRN ×3 (02:13→16:45)
[2019-12-22 05:09] VITALS: BP 122/71
[2019-12-22] MEDS: OxyCODONE HCL 5 MG IR TABLET PO PRN ×3 (05:09→21:45)
[2019-12-22 08:00] VITALS: BP 112/60
[2019-12-22] MEDS: FAMOTIDINE 20 MG TABLET PO SCH ×2 (08:57→16:01)
[2019-12-22] MEDS: FUROSEMIDE 20 MG TABLET PO SCH (08:58)
[2019-12-22] MEDS: APIXABAN 2.5 MG TABLET PO SCH ×2 (08:58→16:01)
[2019-12-22] MEDS: MUPIROCIN CALCIUM 2% 22 GM OINTMENT NASAL SCH (08:59)
[2019-12-22 10:27] VITALS: BP 139/77
[2019-12-22 11:29] VITALS: BP 139/87
[2019-12-22] MEDS: LORazepam 2 MG TABLET PO PRN (14:27)
[2019-12-22 16:00] VITALS: BP 115/63
[2019-12-22] MEDS: HALOPERIDOL 5 MG TABLET PO PRN (18:23)
[2019-12-22] MEDS: QUEtiapine FUMARATE 25 MG TABLET PO SCH (20:54)
[2019-12-23 00:24] VITALS: BP 128/61
[2019-12-23] MEDS: LORazepam 2 MG TABLET PO PRN ×2 (00:24→16:06)
[2019-12-23] MEDS: ACETAMINOPHEN 325 MG TABLET PO PRN (00:25)
[2019-12-23 08:00] VITALS: BP 122/71
[2019-12-23] MEDS: APIXABAN 2.5 MG TABLET PO SCH ×2 (08:44→16:06)
[2019-12-23] MEDS: FUROSEMIDE 20 MG TABLET PO SCH (08:44)
[2019-12-23] MEDS: FAMOTIDINE 20 MG TABLET PO SCH ×2 (08:44→16:06)
[2019-12-23] MEDS: GuaiFENesin/D-METHORPHAN [SUGAR-FREE] 200-20MG/10 ML SYRUP UDCUP PO PRN ×2 (10:03→16:08)
[2019-12-23] MEDS: BENZONATATE 100 MG CAPSULE PO SCH ×2 (13:44→16:06)
[2019-12-23] MEDS: HALOPERIDOL 5 MG TABLET PO PRN (16:06)
[2019-12-23] MEDS: NYSTATIN 15 GM POWDER BOTTLE TP SCH (16:07)
[2019-12-23 16:20] VITALS: BP 105/75
[2019-12-23 17:11] VITALS: BP 112/76
[2019-12-23] MEDS: OxyCODONE HCL 5 MG IR TABLET PO PRN (17:11)
[2019-12-23] MEDS: QUEtiapine FUMARATE 25 MG TABLET PO SCH (21:22)
[2019-12-23] MEDS: ZOLPIDEM TARTRATE 10 MG TABLET PO PRN (21:23)
[2019-12-24] MEDS: GuaiFENesin/D-METHORPHAN [SUGAR-FREE] 200-20MG/10 ML SYRUP UDCUP PO PRN ×3 (00:02→16:14)
[2019-12-24 03:20] VITALS: BP 107/76
[2019-12-24] MEDS: OxyCODONE HCL 5 MG IR TABLET PO PRN ×2 (03:24→22:19)
[2019-12-24 08:32] VITALS: BP 128/69
[2019-12-24] MEDS: FAMOTIDINE 20 MG TABLET PO SCH ×2 (08:37→16:11)
[2019-12-24] MEDS: FUROSEMIDE 20 MG TABLET PO SCH (08:37)
[2019-12-24] MEDS: BENZONATATE 100 MG CAPSULE PO SCH ×3 (08:37→16:11)
[2019-12-24 08:38] VITALS: BP 128/69
[2019-12-24] MEDS: ACETAMINOPHEN 325 MG TABLET PO PRN (08:38)
[2019-12-24] MEDS: APIXABAN 2.5 MG TABLET PO SCH ×2 (08:38→16:11)
[2019-12-24] MEDS: NYSTATIN 15 GM POWDER BOTTLE TP SCH ×2 (08:42→16:12)
[2019-12-24 09:38] VITALS: BP 128/73
[2019-12-24 16:31] VITALS: BP 126/71
[2019-12-24] MEDS: QUEtiapine FUMARATE 25 MG TABLET PO SCH (20:02)
[2019-12-24] MEDS: ZOLPIDEM TARTRATE 10 MG TABLET PO PRN (20:05)
[2019-12-25 00:30] VITALS: BP 140/73
[2019-12-25] MEDS: LORazepam 2 MG TABLET PO PRN ×2 (00:58→15:50)
[2019-12-25] MEDS: GuaiFENesin/D-METHORPHAN [SUGAR-FREE] 200-20MG/10 ML SYRUP UDCUP PO PRN ×3 (06:33→19:06)
[2019-12-25] MEDS: BENZONATATE 100 MG CAPSULE PO SCH ×3 (08:48→16:01)
[2019-12-25] MEDS: FAMOTIDINE 20 MG TABLET PO SCH ×2 (08:48→15:50)
[2019-12-25] MEDS: FUROSEMIDE 20 MG TABLET PO SCH (08:49)
[2019-12-25] MEDS: NYSTATIN 15 GM POWDER BOTTLE TP SCH ×2 (08:49→16:16)
[2019-12-25] MEDS: APIXABAN 2.5 MG TABLET PO SCH ×2 (08:49→15:50)
[2019-12-25] MEDS: OxyCODONE HCL 5 MG IR TABLET PO PRN ×2 (08:51→16:55)
[2019-12-25 08:53] VITALS: BP 122/73
[2019-12-25] MEDS: HALOPERIDOL 5 MG TABLET PO PRN (15:50)
[2019-12-25 16:08] VITALS: BP 149/90
[2019-12-25 17:51] VITALS: BP 138/85
[2019-12-25] MEDS: QUEtiapine FUMARATE 25 MG TABLET PO SCH (21:19)
[2019-12-26] VITALS (7 sets, daily range): BP systolic 103–132; BP diastolic 67–84
[2019-12-26] MEDS: LORazepam 2 MG TABLET PO PRN ×2 (00:24→08:19)
[2019-12-26] MEDS: ZOLPIDEM TARTRATE 10 MG TABLET PO PRN (00:24)
[2019-12-26] MEDS: OxyCODONE HCL 5 MG IR TABLET PO PRN ×2 (04:52→13:04)
[2019-12-26 08:08] LABS: ANION GAP 6 mmol/L (8-16); CALCIUM, TOTAL 9.3 mg/dL (8.8-10.5); CARBON DIOXIDE 29 mmol/L (22-29); CHLORIDE 108 mmol/L (98-107); CREATININE 0.63 mg/dL (0.60-1.30); GLUCOSE,RANDOM 89 mg/dL (70-110); SODIUM SERUM 143 mmol/L (136-145); UREA NITROGEN, BLOOD 11 mg/dL (7-18)
[2019-12-26 08:10] LABS: GLOMERULAR FILTR. RATE CALC > 60 mL/min (>60)
[2019-12-26] MEDS: FAMOTIDINE 20 MG TABLET PO SCH ×2 (08:20→16:11)
[2019-12-26] MEDS: NYSTATIN 15 GM POWDER BOTTLE TP SCH ×2 (08:20→16:11)
[2019-12-26] MEDS: FUROSEMIDE 20 MG TABLET PO SCH (08:20)
[2019-12-26] MEDS: APIXABAN 2.5 MG TABLET PO SCH ×2 (08:20→16:11)
[2019-12-26] MEDS: BENZONATATE 100 MG CAPSULE PO SCH ×3 (08:20→16:11)
[2019-12-26] MEDS: GuaiFENesin/D-METHORPHAN [SUGAR-FREE] 200-20MG/10 ML SYRUP UDCUP PO PRN (08:41)
[2019-12-26] MEDS: ACETAMINOPHEN 325 MG TABLET PO PRN (16:17)
[2019-12-26] MEDS: QUEtiapine FUMARATE 25 MG TABLET PO SCH (20:04)
[2019-12-27 00:10] VITALS: BP 116/64
[2019-12-27] MEDS: ZOLPIDEM TARTRATE 10 MG TABLET PO PRN (00:16)
[2019-12-27] MEDS: OxyCODONE HCL 5 MG IR TABLET PO PRN ×2 (00:16→08:35)
[2019-12-27 04:08] VITALS: BP 121/80
[2019-12-27] MEDS: ACETAMINOPHEN 325 MG TABLET PO PRN ×2 (04:11→12:45)
[2019-12-27] MEDS: LORazepam 2 MG TABLET PO PRN ×2 (04:11→12:45)
[2019-12-27] MEDS: HALOPERIDOL 5 MG TABLET PO PRN (04:11)
[2019-12-27] MEDS: BENZONATATE 100 MG CAPSULE PO SCH ×3 (08:31→16:01)
[2019-12-27] MEDS: APIXABAN 2.5 MG TABLET PO SCH ×2 (08:32→16:01)
[2019-12-27] MEDS: FAMOTIDINE 20 MG TABLET PO SCH ×2 (08:32→16:01)
[2019-12-27 08:35] VITALS: BP 121/74
[2019-12-27] MEDS: NYSTATIN 15 GM POWDER BOTTLE TP SCH ×2 (08:35→16:01)
[2019-12-27] MEDS: FUROSEMIDE 20 MG TABLET PO SCH (08:37)
[2019-12-27 12:45] VITALS: BP 134/86
[2019-12-27 16:10] VITALS: BP 126/70
[2019-12-27] MEDS: GuaiFENesin/D-METHORPHAN [SUGAR-FREE] 200-20MG/10 ML SYRUP UDCUP PO PRN (19:44)
[2019-12-27] MEDS: QUEtiapine FUMARATE 25 MG TABLET PO SCH (20:17)
[2019-12-28 05:55] VITALS: BP 123/70
[2019-12-28] MEDS: OxyCODONE HCL 5 MG IR TABLET PO PRN ×2 (05:55→19:23)
[2019-12-28] MEDS: APIXABAN 2.5 MG TABLET PO SCH ×2 (09:02→16:11)
[2019-12-28] MEDS: FUROSEMIDE 20 MG TABLET PO SCH (09:02)
[2019-12-28] MEDS: FAMOTIDINE 20 MG TABLET PO SCH ×2 (09:02→16:11)
[2019-12-28] MEDS: BENZONATATE 100 MG CAPSULE PO SCH ×3 (09:02→16:11)
[2019-12-28 09:24] VITALS: BP 132/73
[2019-12-28] MEDS: NYSTATIN 15 GM POWDER BOTTLE TP SCH ×2 (09:25→19:21)
[2019-12-28] MEDS: GuaiFENesin/D-METHORPHAN [SUGAR-FREE] 200-20MG/10 ML SYRUP UDCUP PO PRN ×2 (12:01→19:12)
[2019-12-28] MEDS: LORazepam 2 MG TABLET PO PRN (12:56)
[2019-12-28 16:16] VITALS: BP 111/70
[2019-12-28] MEDS: QUEtiapine FUMARATE 25 MG TABLET PO SCH (20:12)
[2019-12-29] MEDS: OxyCODONE HCL 5 MG IR TABLET PO PRN ×2 (04:21→19:38)
[2019-12-29] MEDS: LORazepam 2 MG TABLET PO PRN (04:21)
[2019-12-29] MEDS: GuaiFENesin/D-METHORPHAN [SUGAR-FREE] 200-20MG/10 ML SYRUP UDCUP PO PRN ×3 (04:21→19:34)
[2019-12-29 04:23] VITALS: BP 128/84
[2019-12-29 08:00] VITALS: BP 106/68
[2019-12-29] MEDS: BENZONATATE 100 MG CAPSULE PO SCH ×3 (08:38→16:21)
[2019-12-29] MEDS: FUROSEMIDE 20 MG TABLET PO SCH (08:38)
[2019-12-29] MEDS: FAMOTIDINE 20 MG TABLET PO SCH ×2 (08:38→16:21)
[2019-12-29] MEDS: APIXABAN 2.5 MG TABLET PO SCH ×2 (08:39→16:21)
[2019-12-29] MEDS: NYSTATIN 15 GM POWDER BOTTLE TP SCH ×2 (08:39→16:22)
[2019-12-29 16:59] VITALS: BP 130/80
[2019-12-29 19:38] VITALS: BP 132/72
[2019-12-29] MEDS: QUEtiapine FUMARATE 25 MG TABLET PO SCH (20:22)
[2019-12-29 20:38] VITALS: BP 133/56
[2019-12-29] MEDS: ZOLPIDEM TARTRATE 10 MG TABLET PO PRN (21:13)
[2019-12-30 01:28] VITALS: BP 110/60
[2019-12-30] MEDS: ACETAMINOPHEN 325 MG TABLET PO PRN (01:31)
[2019-12-30] MEDS: LORazepam 2 MG TABLET PO PRN (01:31)
[2019-12-30 05:51] VITALS: BP 126/62
[2019-12-30] MEDS: OxyCODONE HCL 5 MG IR TABLET PO PRN ×2 (05:54→16:36)
[2019-12-30] MEDS: GuaiFENesin/D-METHORPHAN [SUGAR-FREE] 200-20MG/10 ML SYRUP UDCUP PO PRN (08:38)
[2019-12-30] MEDS: APIXABAN 2.5 MG TABLET PO SCH ×2 (08:39→16:33)
[2019-12-30] MEDS: NYSTATIN 15 GM POWDER BOTTLE TP SCH ×2 (08:39→16:34)
[2019-12-30] MEDS: FUROSEMIDE 20 MG TABLET PO SCH (08:39)
[2019-12-30] MEDS: BENZONATATE 100 MG CAPSULE PO SCH ×3 (08:39→16:33)
[2019-12-30] MEDS: FAMOTIDINE 20 MG TABLET PO SCH ×2 (08:39→16:33)
[2019-12-30 09:22] VITALS: BP 139/90
[2019-12-30 09:40] VITALS: BP 129/88
[2019-12-30 16:11] VITALS: BP 130/76
[2019-12-30 16:36] VITALS: BP 138/78
[2019-12-30] MEDS: QUEtiapine FUMARATE 25 MG TABLET PO SCH ×2 (20:49→22:00)
[2019-12-31 04:30] VITALS: BP 118/66
[2019-12-31] MEDS: OxyCODONE HCL 5 MG IR TABLET PO PRN ×2 (04:34→16:09)
[2019-12-31 08:00] VITALS: BP 126/71
[2019-12-31] MEDS: APIXABAN 2.5 MG TABLET PO SCH ×2 (08:40→16:09)
[2019-12-31] MEDS: LORazepam 2 MG TABLET PO PRN (08:40)
[2019-12-31] MEDS: FUROSEMIDE 20 MG TABLET PO SCH (08:40)
[2019-12-31] MEDS: FAMOTIDINE 20 MG TABLET PO SCH ×2 (08:40→16:09)
[2019-12-31] MEDS: BENZONATATE 100 MG CAPSULE PO SCH ×3 (08:41→16:09)
[2019-12-31] MEDS: NYSTATIN 15 GM POWDER BOTTLE TP SCH ×2 (08:41→16:14)
[2019-12-31] MEDS: GuaiFENesin/D-METHORPHAN [SUGAR-FREE] 200-20MG/10 ML SYRUP UDCUP PO PRN ×2 (13:01→16:09)
[2019-12-31 16:09] VITALS: BP 126/70
[2019-12-31 16:27] VITALS: BP 120/68
[2019-12-31] MEDS: QUEtiapine FUMARATE 25 MG TABLET PO SCH (20:28)
[2019-12-31 21:50] LABS: INFLUENZA TYPE A NEGATIVE FOR TYPE A (NEGATIVE); INFLUENZA TYPE B NEGATIVE FOR TYPE B (NEGATIVE)
[2020-01-01 04:40] VITALS: BP 123/71
[2020-01-01] MEDS: OxyCODONE HCL 5 MG IR TABLET PO PRN ×2 (04:42→19:27)
[2020-01-01] MEDS: GuaiFENesin/D-METHORPHAN [SUGAR-FREE] 200-20MG/10 ML SYRUP UDCUP PO PRN ×2 (06:45→17:36)
[2020-01-01] MEDS: APIXABAN 2.5 MG TABLET PO SCH ×2 (08:31→17:36)
[2020-01-01] MEDS: FAMOTIDINE 20 MG TABLET PO SCH ×2 (08:31→17:36)
[2020-01-01] MEDS: BENZONATATE 100 MG CAPSULE PO SCH ×3 (08:32→17:36)
[2020-01-01] MEDS: NYSTATIN 15 GM POWDER BOTTLE TP SCH ×2 (08:33→17:36)
[2020-01-01] MEDS: FUROSEMIDE 20 MG TABLET PO SCH (08:40)
[2020-01-01 08:47] VITALS: BP 133/63
[2020-01-01 16:40] VITALS: BP 135/73
[2020-01-01 19:27] VITALS: BP 138/74
[2020-01-01] MEDS: QUEtiapine FUMARATE 25 MG TABLET PO SCH (20:18)
[2020-01-02 01:28] VITALS: BP 114/63
[2020-01-02] MEDS: LORazepam 2 MG TABLET PO PRN (01:30)
[2020-01-02] MEDS: ACETAMINOPHEN 325 MG TABLET PO PRN (01:31)
[2020-01-02] MEDS: BENZONATATE 100 MG CAPSULE PO SCH ×3 (08:24→16:36)
[2020-01-02] MEDS: NYSTATIN 15 GM POWDER BOTTLE TP SCH ×2 (08:24→16:36)
[2020-01-02] MEDS: FUROSEMIDE 20 MG TABLET PO SCH (08:24)
[2020-01-02] MEDS: FAMOTIDINE 20 MG TABLET PO SCH ×2 (08:24→16:35)
[2020-01-02] MEDS: APIXABAN 2.5 MG TABLET PO SCH ×2 (08:24→16:36)
[2020-01-02 09:57] VITALS: BP 132/68
[2020-01-02 12:38] VITALS: BP 127/72
[2020-01-02] MEDS: OxyCODONE HCL 5 MG IR TABLET PO PRN ×2 (12:40→20:49)
[2020-01-02 16:23] VITALS: BP 110/57
[2020-01-02] MEDS: GuaiFENesin/D-METHORPHAN [SUGAR-FREE] 200-20MG/10 ML SYRUP UDCUP PO PRN (18:11)
[2020-01-02] MEDS: QUEtiapine FUMARATE 25 MG TABLET PO SCH (20:19)
[2020-01-02 21:16] VITALS: BP 110/60
[2020-01-03 00:01] VITALS: BP 131/76
[2020-01-03] MEDS: ACETAMINOPHEN 325 MG TABLET PO PRN (00:04)
[2020-01-03] MEDS: ZOLPIDEM TARTRATE 10 MG TABLET PO PRN (00:04)
[2020-01-03] MEDS: LORazepam 2 MG TABLET PO PRN (00:04)
[2020-01-03] MEDS: OxyCODONE HCL 5 MG IR TABLET PO PRN ×2 (06:25→22:12)
[2020-01-03] MEDS: BENZONATATE 100 MG CAPSULE PO SCH ×3 (08:27→16:04)
[2020-01-03] MEDS: APIXABAN 2.5 MG TABLET PO SCH ×2 (08:27→16:04)
[2020-01-03] MEDS: FUROSEMIDE 20 MG TABLET PO SCH (08:27)
[2020-01-03] MEDS: FAMOTIDINE 20 MG TABLET PO SCH ×2 (08:28→16:04)
[2020-01-03] MEDS: NYSTATIN 15 GM POWDER BOTTLE TP SCH ×2 (08:34→16:27)
[2020-01-03] MEDS: GuaiFENesin/D-METHORPHAN [SUGAR-FREE] 200-20MG/10 ML SYRUP UDCUP PO PRN ×2 (09:29→16:07)
[2020-01-03 13:15] VITALS: BP 128/65
[2020-01-03 16:07] VITALS: BP 130/70
[2020-01-03] MEDS: QUEtiapine FUMARATE 25 MG TABLET PO SCH (20:50)
[2020-01-03 22:12] VITALS: BP 120/62
[2020-01-04 04:08] VITALS: BP 118/65
[2020-01-04] MEDS: ACETAMINOPHEN 325 MG TABLET PO PRN (04:11)
[2020-01-04] MEDS: LORazepam 2 MG TABLET PO PRN (04:11)
[2020-01-04 07:40] LABS: CHOL/HDL RATIO 3.6 (3.9-5.7)
[2020-01-04 08:23] VITALS: BP 106/71
[2020-01-04] MEDS: APIXABAN 2.5 MG TABLET PO SCH ×2 (08:28→16:22)
[2020-01-04] MEDS: BENZONATATE 100 MG CAPSULE PO SCH ×3 (08:28→16:22)
[2020-01-04] MEDS: FAMOTIDINE 20 MG TABLET PO SCH ×2 (08:28→16:22)
[2020-01-04] MEDS: FUROSEMIDE 20 MG TABLET PO SCH (08:28)
[2020-01-04] MEDS: NYSTATIN 15 GM POWDER BOTTLE TP SCH ×2 (08:29→16:23)
[2020-01-04] MEDS: GuaiFENesin/D-METHORPHAN [SUGAR-FREE] 200-20MG/10 ML SYRUP UDCUP PO PRN ×2 (11:35→20:30)
[2020-01-04 16:19] VITALS: BP 130/67
[2020-01-04] MEDS: QUEtiapine FUMARATE 25 MG TABLET PO SCH (20:11)
[2020-01-04] MEDS: ZOLPIDEM TARTRATE 10 MG TABLET PO PRN (20:13)
[2020-01-05 01:39] VITALS: BP 129/72
[2020-01-05] MEDS: OxyCODONE HCL 5 MG IR TABLET PO PRN ×2 (01:45→16:52)
[2020-01-05] MEDS: GuaiFENesin/D-METHORPHAN [SUGAR-FREE] 200-20MG/10 ML SYRUP UDCUP PO PRN ×3 (03:21→17:21)
[2020-01-05 08:09] VITALS: BP 113/66
[2020-01-05] MEDS: FUROSEMIDE 20 MG TABLET PO SCH (08:14)
[2020-01-05] MEDS: FAMOTIDINE 20 MG TABLET PO SCH ×2 (08:14→16:58)
[2020-01-05] MEDS: APIXABAN 2.5 MG TABLET PO SCH ×2 (08:15→16:58)
[2020-01-05] MEDS: BENZONATATE 100 MG CAPSULE PO SCH ×3 (08:15→16:58)
[2020-01-05] MEDS: NYSTATIN 15 GM POWDER BOTTLE TP SCH ×2 (08:15→16:59)
[2020-01-05] MEDS: LORazepam 2 MG TABLET PO PRN (12:28)
[2020-01-05] MEDS: HALOPERIDOL 5 MG TABLET PO PRN (16:57)
[2020-01-05 17:22] VITALS: BP 140/85
[2020-01-05] MEDS: QUEtiapine FUMARATE 25 MG TABLET PO SCH (20:18)
[2020-01-05] MEDS: ZOLPIDEM TARTRATE 10 MG TABLET PO PRN (20:37)
[2020-01-06 07:45] VITALS: BP 138/72
[2020-01-06] MEDS: GuaiFENesin/D-METHORPHAN [SUGAR-FREE] 200-20MG/10 ML SYRUP UDCUP PO PRN (07:56)
[2020-01-06] MEDS: LORazepam 2 MG TABLET PO PRN (07:56)
[2020-01-06] MEDS: ACETAMINOPHEN 325 MG TABLET PO PRN (07:57)
[2020-01-06] MEDS: FAMOTIDINE 20 MG TABLET PO SCH (09:02)
[2020-01-06] MEDS: FUROSEMIDE 20 MG TABLET PO SCH (09:02)
[2020-01-06] MEDS: NYSTATIN 15 GM POWDER BOTTLE TP SCH (09:02)
[2020-01-06] MEDS: APIXABAN 2.5 MG TABLET PO SCH (09:02)
[2020-01-06] MEDS: BENZONATATE 100 MG CAPSULE PO SCH ×2 (09:02→13:00)
[2020-01-06 09:05] VITALS: BP 115/58
[2020-01-06] MEDS ORDERED: QUET25TA PO (09:26)
[2020-01-06] MEDS ORDERED: FURO20 PO (09:30)
[2020-01-06] MEDS ORDERED: NYST15PO3 TP (09:31)
== END 2020-01-06 13:00 | DRG 885 ==
LOC: EMS 11:54 → 3EX 12-15 08:39
PROVIDERS: ADMIT Psychiatry & Neurology Child & Adolescent Psychiatry; ATTEND Psychiatry & Neurology Child & Adolescent Psychiatry
DX: F29 Unspecified psychosis not due to a substance or known physiological condition (principal); I11.0 Hypertensive heart disease with heart failure; I48.20 Chronic atrial fibrillation, unspecified; Z68.41 Body mass index [BMI] 40.0-44.9, adult; D64.9 Anemia, unspecified; E55.9 Vitamin D deficiency, unspecified; E66.9 Obesity, unspecified; F17.210 Nicotine dependence, cigarettes, uncomplicated; F32.9 Major depressive disorder, single episode, unspecified; G40.909 Epilepsy, unspecified, not intractable, without status epilepticus; G47.00 Insomnia, unspecified; G89.29 Other chronic pain; Z96.653 Presence of artificial knee joint, bilateral; I50.9 Heart failure, unspecified; K21.9 Gastro-esophageal reflux disease without esophagitis; F41.9 Anxiety disorder, unspecified; M19.90 Unspecified osteoarthritis, unspecified site; M79.7 Fibromyalgia; Z79.01 Long term (current) use of anticoagulants; Z90.710 Acquired absence of both cervix and uterus; Z91.19 Patient's noncompliance with other medical treatment and regimen; Z98.1 Arthrodesis status; Z99.3 Dependence on wheelchair; Z88.5 Allergy status to narcotic agent; Z79.899 Other long term (current) drug therapy
CPT/HCPCS: 85007; 87081; 87804; 93005; G0378; J1200; J1630; J2060; J3535

== ENCOUNTER 2020-04-11 15:40 | Emergency (ER) | payer MEDICARE, OTHER ==
[~2020-04-11] VITALS: Ht 172.7 cm; Wt 113.6 kg
[~2020-04-11 15:40] MED LIST changes: -ADV100 IH; -ALBU8HFA IH; +APIX2.5T PO; -AZIT250T9 PO; -BACL10TA PO; +BENZ-51 PO; -DOCU250C91 PO; -DULO30CA2 PO; +FAMO20 PO; +FURO20 PO; -FURO40 PO; -GABA-533 PO; -HYDR-4061 PO; -KDUR10 PO; +MULT-1203 PO; +NYST15PO3 TP; +OXYC5 PO; -PANT40TA PO; -PRED5 PO; +QUET25TA PO; -RISP.5 PO; +TEMA15CA PO; -TEMA7.5C17 PO; -TRAZ-220 PO
[2020-04-11] MEDS ORDERED: ACET325T51 PO (16:23)
[2020-04-11] MEDS ORDERED: 0.9% SODIUM CHLORIDE 10 ML SYRINGE IVP PRN (17:00)
[2020-04-11 18:03] LABS: BASOPHILS % (AUTO) 0.3 % (0.0-2.0); EOSINOPHILS % (AUTO) 0.1 % (1.0-6.0); HEMOGLOBIN 12.3 g/dL (12.0-16.0); LYMPHOCYTES # (AUTO) 1.7 K/uL (1.0-4.8); LYMPHOCYTES % (AUTO) 20.9 % (22.0-44.0); MEAN CORPUSCULAR HEMOGLOBIN 28.6 pg (26.0-34.0); MEAN CORPUSCULAR HGB CONC 32.4 G/dL (31.0-37.0); MEAN CORPUSCULAR VOLUME 88 fL (80-100); MONOCYTES # (AUTO) 0.7 K/uL (0.1-1.0); MONOCYTES % (AUTO) 8.3 % (2.0-9.0); NEUTROPHILS # (AUTO) 5.8 K/uL (1.8-7.7); NEUTROPHILS % (AUTO) 70.4 % (40.0-70.0); PLATELET COUNT (AUTO) 217 K/uL (150-450); RED BLOOD CELL COUNT(AUTO) 4.31 MIL/uL (4.00-5.20); RED CELL DISTRIBUTION WIDTH 15.9 % (11.5-14.5)
[2020-04-11 18:22] LABS: ANION GAP 7 mmol/L (8-16); CALCIUM, TOTAL 9.7 mg/dL (8.8-10.5); CARBON DIOXIDE 29 mmol/L (22-29); CHLORIDE 100 mmol/L (98-107); CREATININE 1.06 mg/dL (0.60-1.30); GLUCOSE,RANDOM 113 mg/dL (70-110); POTASSIUM 4.1 mmol/L (3.5-5.1); SODIUM SERUM 136 mmol/L (136-145); UREA NITROGEN, BLOOD 19 mg/dL (7-18)
[2020-04-11 18:23] LABS: GLOMERULAR FILTR. RATE CALC > 60 mL/min (>60)
[2020-04-11 18:25] LABS: PROTHROMBIN TIME 10.2 SEC (9.4-11.6)
[2020-04-11 18:32] LABS: B-TYPE NATRIURETIC PEPTIDE 22 pg/mL (0-100)
[2020-04-11 18:49] LABS: LACTIC ACID 1.1 mmol/L (0.4-2.0)
[2020-04-11 18:55] LABS: ALANINE AMINOTRANSFERASE 26 U/L (12-78); ALBUMIN 3.1 g/dL (3.4-5.0); ALKALINE PHOSPHATASE 109 U/L (46-116); ASPARTATE AMINOTRANSFERASE 29 U/L (15-37); BILIRUBIN,TOTAL 0.5 mg/dL (0.1-1.0); C-REACTIVE PROTEIN QUANT 13.73 mg/dL (0.00-0.30); CREATINE KINASE, TOTAL ONLY 104 U/L (26-192); FERRITIN 196 ng/mL (8-252); TOTAL PROTEIN, SERUM 8.5 g/dL (6.4-8.2)
[2020-04-11 19:54] LABS: INFLUENZA TYPE A NEGATIVE FOR TYPE A (NEGATIVE); INFLUENZA TYPE B NEGATIVE FOR TYPE B (NEGATIVE)
[2020-04-11 20:10] LABS: APPEARANCE,URINE CLOUDY (CLEAR); BILIRUBIN,URINE NEGATIVE (NEGATIVE); GLUCOSE, URINE (UA) NEGATIVE (NEGATIVE); KETONES,URINE NEGATIVE (NEGATIVE); LEUKOCYTE ESTERASE ,URINE LARGE (NEGATIVE); NITRATE,URINE POSITIVE (NEGATIVE); OCCULT BLOOD,URINE LARGE (NEGATIVE); PH,URINE 5.5 (5.0-8.0); PROTEIN,URINE SEE CONFIRM (NEGATIVE)
[2020-04-11 20:31] LABS: SULFOSALICYLIC ACID,URINE 4+ (Negative)
[2020-04-11 20:33] LABS: WBC,URINE 26-50 /HPF (0-5)
[2020-04-11 20:34] LABS: BACTERIA,URINE Many /HPF (None Seen); SQUAMOUS EPITHELIAL CELL,UR Few /LPF (None Seen)
[2020-04-11] MEDS ORDERED: CefTRIAXone 1 GM/DEXTROSE 50 ML IV ONE (20:45)
[2020-04-11] MEDS ORDERED: ACETAMINOPHEN 500 MG TABLET PO ONE (20:45)
[2020-04-11] MEDS ORDERED: SODIUM CHLORIDE 0.9% 1,000 ML IV ONE (20:45)
[2020-04-12 00:45] VITALS: BP 116/70
[2020-04-14] MEDS ORDERED: CEPH-582 PO (00:40)
== END 2020-04-12 02:00 | disposition home or self-care (01) ==
LOC: EMS 15:43
DX: N39.0 Urinary tract infection, site not specified (principal); F17.210 Nicotine dependence, cigarettes, uncomplicated; F32.9 Major depressive disorder, single episode, unspecified; I10 Essential (primary) hypertension; F20.9 Schizophrenia, unspecified; Z88.6 Allergy status to analgesic agent; Z79.01 Long term (current) use of anticoagulants; Z79.899 Other long term (current) drug therapy
CPT/HCPCS: 96365; 99285; J0696; J7030; 82728; 83605; 86140; 87040; 87086; 87205; 87804; 93005

== ENCOUNTER 2021-04-03 14:49 | Emergency (ER) | payer MEDICARE, OTHER ==
[~2021-04-03] VITALS: Ht 162.6 cm; Wt 108.2 kg
[~2021-04-03 14:49] MED LIST changes: +ACET-784 PO; -APIX2.5T PO; +AUD NEB; -BENZ-51 PO; +BENZ-70 PO; +BISA-151 PO; +HYDR-4061 PO; +IPRAHFA IH; +IPRNEB IH; +MOM30 PO; +MORP1AMP6 IVP; -MULT-1203 PO; -OXYC5 PO; +PHEN28OI9 TP; +QUET50TA PO; -TEMA15CA PO
[2021-04-03 15:20] VITALS: BP 125/66
== END 2021-04-03 18:41 | disposition home or self-care (01) ==
LOC: EMS 15:03
DX: M79.675 Pain in left toe(s) (principal); I48.91 Unspecified atrial fibrillation; F41.9 Anxiety disorder, unspecified; J44.9 Chronic obstructive pulmonary disease, unspecified; F32.9 Major depressive disorder, single episode, unspecified; K21.9 Gastro-esophageal reflux disease without esophagitis; I10 Essential (primary) hypertension; F20.9 Schizophrenia, unspecified; F17.210 Nicotine dependence, cigarettes, uncomplicated; Z88.6 Allergy status to analgesic agent; Z79.899 Other long term (current) drug therapy
CPT/HCPCS: 99283; Z7502

== ENCOUNTER 2024-07-31 01:38 | Emergency (ER) | payer MEDICARE, OTHER ==
[~2024-07-31] VITALS: Ht 162.6 cm; Wt 180.0 kg
[~2024-07-31 01:38] MED LIST changes: +ALBU2.5V39 NEB; -AUD NEB; +BENZ-227 PO; -BENZ-70 PO; +IPRA0.2S49 IH; -IPRNEB IH; +MAGN-169 PO; -MOM30 PO
[2024-07-31 02:20] VITALS: TEMP 98.8
[2024-07-31] MEDS: TraMADol HCL 50 MG TABLET PO ONE (04:12)
[2024-07-31] MEDS: LIDOCAINE 5% TRANSDERMAL PATCH TD ONE (04:12)
[2024-07-31 04:24] LABS: BASOPHILS % (AUTO) 0.2 % (0.0-2.0); EOSINOPHILS % (AUTO) 5.1 % (1.0-6.0); HEMATOCRIT 38.4 % (36-46); HEMOGLOBIN 12.6 g/dL (12.0-16.0); LYMPHOCYTES # (AUTO) 2.9 K/uL (1.0-4.8); LYMPHOCYTES % (AUTO) 43.7 % (22.0-44.0); MEAN CORPUSCULAR HEMOGLOBIN 30.7 pg (26.0-34.0); MEAN CORPUSCULAR HGB CONC 32.8 G/dL (31.0-37.0); MEAN CORPUSCULAR VOLUME 93 fL (80-100); MONOCYTES # (AUTO) 0.4 K/uL (0.1-1.0); MONOCYTES % (AUTO) 5.9 % (2.0-9.0); NEUTROPHILS % (AUTO) 45.1 % (40.0-70.0); PLATELET COUNT (AUTO) 294 K/uL (150-450); RED BLOOD CELL COUNT(AUTO) 4.11 MIL/uL (4.00-5.20); RED CELL DISTRIBUTION WIDTH 14.9 % (11.5-14.5); WHITE BLOOD COUNT (AUTO) 6.6 K/uL (4.5-11.0)
[2024-07-31 04:33] LABS: ANION GAP 8 mmol/L (8-16); CALCIUM, TOTAL 10.1 mg/dL (8.8-10.5); CARBON DIOXIDE 30 mmol/L (22-29); CHLORIDE 104 mmol/L (98-107); CREATININE 0.74 mg/dL (0.60-1.30); GLOMERULAR FILTR. RATE CALC > 60 mL/min (>60); GLUCOSE,RANDOM 98 mg/dL (70-110); POTASSIUM 4.5 mmol/L (3.5-5.1); SODIUM SERUM 142 mmol/L (136-145); UREA NITROGEN, BLOOD 12 mg/dL (7-18)
[2024-07-31] MEDS ORDERED: POLY119P3 PO (05:23)
[2024-07-31] MEDS ORDERED: LIDO700A15 TP (05:24)
[2024-07-31] MEDS ORDERED: CEPH-558 PO (05:50)
[2024-07-31 06:06] LABS: APPEARANCE,URINE CLEAR (CLEAR); BILIRUBIN,URINE NEGATIVE (NEGATIVE); COLOR,URINE LIGHT YELLOW (YELLOW); GLUCOSE, URINE (UA) NEGATIVE (NEGATIVE); KETONES,URINE NEGATIVE (NEGATIVE); LEUKOCYTE ESTERASE ,URINE NEGATIVE (NEGATIVE); NITRATE,URINE NEGATIVE (NEGATIVE); OCCULT BLOOD,URINE NEGATIVE (NEGATIVE); PROTEIN,URINE NEGATIVE (NEGATIVE); SPECIFIC GRAVITIY, URINE 1.007 (1.003-1.030); UROBILINOGEN,URINE <=1.0 mg/dL (<=1.0)
[2024-07-31 06:34] VITALS: BP 132/74; PULSE 73; RESP 18; O2SAT 97
== END 2024-07-31 09:16 | disposition admitted as inpatient to this hospital (09) ==
LOC: EMS 01:38
DX: M54.50 Low back pain, unspecified (principal); K59.00 Constipation, unspecified; J44.9 Chronic obstructive pulmonary disease, unspecified; K21.9 Gastro-esophageal reflux disease without esophagitis; I10 Essential (primary) hypertension; F17.210 Nicotine dependence, cigarettes, uncomplicated; Z88.6 Allergy status to analgesic agent
CPT/HCPCS: 74022; 80048; 81003; 85025; 99285

== ENCOUNTER 2025-07-26 07:17 | Emergency (ER) | payer MEDICARE, OTHER ==
[~2025-07-26] VITALS: Ht 165.1 cm; Wt 98.6 kg
[~2025-07-26 07:17] MED LIST changes: +CEPH-558 PO; -FURO20 PO; +FURO20TA5 PO; +LIDO-57 TP; +POLY119P3 PO
[2025-07-26 07:57] LABS: PLATELET COUNT (AUTO) 207 K/uL (150-450); RED BLOOD CELL COUNT(AUTO) 4.28 MIL/uL (4.00-5.20); RED CELL DISTRIBUTION WIDTH 16.5 % (11.5-14.5); WHITE BLOOD COUNT (AUTO) 6.8 K/uL (4.5-11.0)
[2025-07-26 08:02] LABS: CALCIUM, TOTAL 9.2 mg/dL (8.8-10.5); CREATININE 0.85 mg/dL (0.60-1.30); GLOMERULAR FILTR. RATE CALC > 60 mL/min (>60); GLUCOSE,RANDOM 88 mg/dL (70-110); SODIUM SERUM 140 mmol/L (136-145); UREA NITROGEN, BLOOD 14 mg/dL (7-18)
[2025-07-26 08:05] VITALS: TEMP 98.3
[2025-07-26 08:16] LABS: COVID AG,FIA SOURCE NASAL SWAB
[2025-07-26 08:51] LABS: SARS-COV2 (COVID) ANTIGEN,FIA Negative (Negative)
[2025-07-26 08:52] VITALS: BP 134/75; PULSE 75; RESP 16; O2SAT 97
== END 2025-07-26 09:16 | disposition home or self-care (01) ==
LOC: EMS 07:19
DX: R45.1 Restlessness and agitation (principal); F20.9 Schizophrenia, unspecified; F32.A Depression, unspecified; G89.29 Other chronic pain; I10 Essential (primary) hypertension; F17.210 Nicotine dependence, cigarettes, uncomplicated; J44.9 Chronic obstructive pulmonary disease, unspecified; M19.90 Unspecified osteoarthritis, unspecified site; M79.7 Fibromyalgia; Z96.653 Presence of artificial knee joint, bilateral; Z88.6 Allergy status to analgesic agent; Z79.899 Other long term (current) drug therapy; Z20.822 Contact with and (suspected) exposure to COVID-19
CPT/HCPCS: 99283; 87426; 80048; 85025; 36415; G0480

== ENCOUNTER 2025-10-16 16:26 | Inpatient (IN) | payer MEDICARE, OTHER ==
[~2025-10-16] VITALS: Ht 162.6 cm; Wt 95.5 kg
[2025-10-16 16:48] LABS: PLATELET COUNT (AUTO) 247 K/uL (150-450); RED BLOOD CELL COUNT(AUTO) 4.38 MIL/uL (4.00-5.20); RED CELL DISTRIBUTION WIDTH 15.7 % (11.5-14.5); WHITE BLOOD COUNT (AUTO) 7.0 K/uL (4.5-11.0)
[2025-10-16 16:57] LABS: CALCIUM, TOTAL 9.9 mg/dL (8.8-10.5); CREATININE 0.97 mg/dL (0.60-1.30); GLOMERULAR FILTR. RATE CALC > 60 mL/min (>60); GLUCOSE,RANDOM 92 mg/dL (70-110); SODIUM SERUM 141 mmol/L (136-145); UREA NITROGEN, BLOOD 24 mg/dL (7-18)
[2025-10-16 17:10] LABS: ASPARTATE AMINOTRANSFERASE 15 U/L (15-37); TOTAL PROTEIN, SERUM 8.0 g/dL (6.4-8.2)
[2025-10-16 17:16] LABS: COVID AG,FIA SOURCE NPH
[2025-10-16 17:20] LABS: ALCOHOL, BLOOD (SERUM) < 3 mg/dL (0-10)
[2025-10-16 17:34] LABS: SARS-COV2 (COVID) ANTIGEN,FIA Negative (Negative)
[2025-10-16] MEDS ORDERED: MELA5TAB40 PO (18:37)
[2025-10-16] MEDS ORDERED: QUET25TA PO (18:37)
[2025-10-16] MEDS ORDERED: DULO30CA62 PO (18:37)
[2025-10-16] MEDS ORDERED: LORazepam 2 MG/ML VIAL ONE (19:08)
[2025-10-16] MEDS: LORazepam 2 MG/ML VIAL IM ONE ×2 (19:19→22:23)
[2025-10-16] MEDS ORDERED: ZOLPIDEM TARTRATE 10 MG TABLET PO PRN (21:00)
[2025-10-17 02:18] LABS: APPEARANCE,URINE HAZY (CLEAR); GLUCOSE, URINE (UA) NEGATIVE (NEGATIVE); LEUKOCYTE ESTERASE ,URINE LARGE (NEGATIVE); OCCULT BLOOD,URINE NEGATIVE (NEGATIVE); PH,URINE DRUG SCREEN 7.5 (5.0-8.0); SPECIFIC GRAVITIY, URINE 1.016 (1.003-1.030)
[2025-10-17 02:19] LABS: NITRATE,URINE NEGATIVE (NEGATIVE)
[2025-10-17 02:22] LABS: ALCOHOL, URINE DRUG SCREEN NEGATIVE (NEGATIVE); AMPHET/METH SCREEN,URINE NEGATIVE (NEGATIVE); BARBITURATE SCREEN, URINE NEGATIVE (NEGATIVE); CANNABINOID SCREEN,URINE NEGATIVE (NEGATIVE); COCAINE SCREEN,URINE NEGATIVE (NEGATIVE); METHADONE SCREEN, URINE NEGATIVE (NEGATIVE)
[2025-10-17] MEDS: CefTRIAXone SODIUM 1 GM/VIAL IM ONE (02:26)
[2025-10-17] MEDS: LIDOCAINE/PF 1% 2 ML VIAL IM ONE (02:27)
[2025-10-17 02:29] LABS: SQUAMOUS EPITHELIAL CELL,UR Few /LPF (None Seen)
[2025-10-17 05:33] LABS: PLATELET COUNT (AUTO) 249 K/uL (150-450); RED BLOOD CELL COUNT(AUTO) 4.48 MIL/uL (4.00-5.20); RED CELL DISTRIBUTION WIDTH 15.9 % (11.5-14.5); WHITE BLOOD COUNT (AUTO) 7.8 K/uL (4.5-11.0)
[2025-10-17 06:11] LABS: ASPARTATE AMINOTRANSFERASE 17 U/L (15-37); CALCIUM, TOTAL 9.9 mg/dL (8.8-10.5); CHOL/HDL RATIO 3.5 (3.9-5.7); CREATININE 0.92 mg/dL (0.60-1.30); GLOMERULAR FILTR. RATE CALC > 60 mL/min (>60); GLUCOSE,RANDOM 96 mg/dL (70-110); LDL CHOL (CALC.) 143 mg/dL (0-130); SODIUM SERUM 141 mmol/L (136-145); TOTAL PROTEIN, SERUM 7.8 g/dL (6.4-8.2); UREA NITROGEN, BLOOD 22 mg/dL (7-18)
[2025-10-17] MEDS ORDERED: BISACODYL 5 MG EC TABLET PO PRN (06:45)
[2025-10-17] MEDS ORDERED: PETROLATUM,WHITE 28 GM JELLY TP PRN (06:45)
[2025-10-17] MEDS ORDERED: ALBUTEROL SULFATE HFA 90 MCG/PUFF 8 GM INHALER IH PRN (06:45)
[2025-10-17] MEDS ORDERED: LOPERAMIDE HCL 2 MG CAPSULE PO PRN (06:45)
[2025-10-17] MEDS ORDERED: MAGNESIUM HYDROXIDE SUSPENSION 30 ML UDCUP PO PRN (06:45)
[2025-10-17] MEDS ORDERED: ONDANSETRON 4 MG TABLET PO PRN (06:45)
[2025-10-17] MEDS ORDERED: POLYETHYLENE GLYCOL 3350 17 GM PACKET PO PRN (06:45)
[2025-10-17] MEDS ORDERED: NICOTINE 14 MG/24 HOUR PATCH TD PRN (06:45)
[2025-10-17] MEDS ORDERED: MAG HYDROX/ALUMINUM HYD/SIMETH ES 30 ML SUSPENSION UDCUP PO PRN (06:45)
[2025-10-17] MEDS: FUROSEMIDE 20 MG TABLET PO SCH (10:02)
[2025-10-17] MEDS: MELATONIN 5 MG TABLET PO SCH (21:00)
[2025-10-18] MEDS: ACETAMINOPHEN 325 MG TABLET PO PRN (02:04)
[2025-10-18] MEDS: ACETAMINOPHEN 500 MG TABLET PO ONE (02:40)
[2025-10-18 03:30] VITALS: BP 141/62; PULSE 75; RESP 18; TEMP 98.6; O2SAT 97
[2025-10-18] MEDS ORDERED: ACET-3800 PO (04:30)
[2025-10-18] MEDS ORDERED: DOCU-385 PO (04:30)
[2025-10-18] MEDS ORDERED: PREG25 PO (04:30)
[2025-10-18] MEDS ORDERED: GABA-1181 PO (04:30)
[2025-10-18] MEDS ORDERED: POLY17PO47 PO (04:30)
[2025-10-18] MEDS ORDERED: SENN-376 PO (04:30)
[2025-10-18] MEDS ORDERED: LIDO1ADH83 TP (04:30)
[2025-10-18] MEDS ORDERED: LACT10SO85 PO (04:30)
[2025-10-18] MEDS ORDERED: OXYC10TA48 PO (04:30)
[2025-10-18] MEDS ORDERED: CALC500T37 PO (04:35)
[2025-10-18] MEDS ORDERED: TUBE5VIA ID (04:51)
[2025-10-18] MEDS ORDERED: NITR0.4T52 SL (04:51)
[2025-10-18] MEDS ORDERED: DICL100G60 TP (04:51)
[2025-10-18] MEDS ORDERED: GUAI100S13 PO (04:56)
[2025-10-18 06:44] LABS: PLATELET COUNT (AUTO) 232 K/uL (150-450); RED BLOOD CELL COUNT(AUTO) 4.49 MIL/uL (4.00-5.20); RED CELL DISTRIBUTION WIDTH 15.2 % (11.5-14.5); WHITE BLOOD COUNT (AUTO) 8.9 K/uL (4.5-11.0)
[2025-10-18 07:12] LABS: CHOL/HDL RATIO 3.2 (3.9-5.7); LDL CHOL (CALC.) 145.0 mg/dL (0-130)
[2025-10-18 07:26] LABS: ASPARTATE AMINOTRANSFERASE 23 U/L (15-37); CALCIUM, TOTAL 10.3 mg/dL (8.8-10.5); CREATININE 0.79 mg/dL (0.60-1.30); GLOMERULAR FILTR. RATE CALC > 60 mL/min (>60); GLUCOSE,RANDOM 115 mg/dL (70-110); SODIUM SERUM 139 mmol/L (136-145); TOTAL PROTEIN, SERUM 8.2 g/dL (6.4-8.2); UREA NITROGEN, BLOOD 18 mg/dL (7-18)
[2025-10-18 07:41] VITALS: BP 108/62; PULSE 90; RESP 18; TEMP 98.8; O2SAT 100
[2025-10-18] MEDS ORDERED: DOCUSATE SODIUM 100 MG CAPSULE PO PRN (08:45)
[2025-10-18] MEDS ORDERED: DICLOFENAC SODIUM 1% 100 GM GEL [2GM] TP PRN (08:45)
[2025-10-18] MEDS ORDERED: NITROGLYCERIN 0.4 MG SUBLINGUAL TABLET #25 SL PRN (08:45)
[2025-10-18] MEDS ORDERED: MAGNESIUM HYDROXIDE SUSPENSION 30 ML UDCUP PO PRN (08:45)
[2025-10-18] MEDS ORDERED: CALCIUM CARBONATE 500 MG CHEWABLE TABLET PO PRN (08:45)
[2025-10-18] MEDS ORDERED: GuaiFENesin [SUGAR-FREE] 200 MG/10 ML SOLUTION UDCUP PO PRN (08:45)
[2025-10-18] MEDS ORDERED: FUROSEMIDE 20 MG TABLET PO SCH (09:00)
[2025-10-18] MEDS: SENNOSIDES 8.6 MG TABLET PO SCH (10:08)
[2025-10-18] MEDS: DULoxetine HCL 30 MG CAPSULE PO SCH (10:09)
[2025-10-18] MEDS: GABAPENTIN 300 MG CAPSULE PO SCH (10:10)
[2025-10-18] MEDS: LACTULOSE 20 GM/30 ML SOLUTION UDCUP PO SCH (10:11)
[2025-10-18] MEDS: POLYETHYLENE GLYCOL 3350 17 GM PACKET PO SCH (10:11)
[2025-10-18] MEDS: CefTRIAXone 1 GM/DEXTROSE 50 ML IV SCH (10:12)
[2025-10-18] MEDS: PREGABALIN 25 MG CAPSULE PO SCH (11:00)
[2025-10-18] MEDS ORDERED: SODIUM CHLORIDE 0.9% 250 ML IV ONE (12:02)
[2025-10-18] MEDS: GuaiFENesin/D-METHORPHAN [SUGAR-FREE] 200-20MG/10 ML SYRUP UDCUP PO PRN (12:17)
[2025-10-18 15:58] VITALS: BP 122/74; PULSE 78; RESP 18; TEMP 98.2; O2SAT 100
[2025-10-18] MEDS: OxyCODONE HCL 10 MG IR TABLET PO PRN (16:26)
[2025-10-18 19:42] VITALS: BP 117/62; PULSE 69; RESP 18; TEMP 98.4; O2SAT 99
[2025-10-19 04:57] VITALS: BP 102/57; PULSE 67; RESP 17; TEMP 98; O2SAT 94
[2025-10-19] MEDS: DOCUSATE SODIUM 100 MG CAPSULE PO PRN (09:29)
[2025-10-19] MEDS: LEVOFLOXACIN 500 MG/D5% WATER 100 ML IV SCH (13:00)
[2025-10-19 15:49] VITALS: BP 103/81; PULSE 76; RESP 18; TEMP 98.1; O2SAT 97
[2025-10-19 20:40] VITALS: BP 95/75; PULSE 78; RESP 17; TEMP 97.9; O2SAT 97
[2025-10-19 22:01] VITALS: BP 118/50; PULSE 71; RESP 18; O2SAT 97
[2025-10-19] MEDS: DIVALPROEX SODIUM 500 MG DR TABLET PO SCH (22:11)
[2025-10-20 04:47] VITALS: BP 120/57; PULSE 79; RESP 18; TEMP 98.8; O2SAT 96
[2025-10-20 08:07] VITALS: BP 114/60; PULSE 74; RESP 18; TEMP 98.1; O2SAT 98
[2025-10-20] MEDS ORDERED: LEVO-72 PO (13:41)
[2025-10-20] MEDS ORDERED: ONDA-104 PO (13:43)
[2025-10-20] MEDS ORDERED: MAGNESIUM HYDROXIDE SUSPENSION 30 ML UDCUP PO PRN (13:45)
[2025-10-20] MEDS ORDERED: ACETAMINOPHEN 325 MG TABLET PO PRN (13:45)
[2025-10-20] MEDS ORDERED: IPRATROPIUM BROMIDE 0.5 MG/2.5 ML NEB SOLUTION NEB PRN (13:45)
[2025-10-20] MEDS ORDERED: ALBUTEROL SULFATE 2.5 MG/0.5 ML NEB SOLUTION NEB PRN (13:45)
[2025-10-20] MEDS ORDERED: ONDANSETRON HCL 4 MG/2 ML VIAL IVP PRN (13:45)
[2025-10-20] MEDS ORDERED: ZOLPIDEM TARTRATE 5 MG TABLET PO PRN (13:45)
[2025-10-20] MEDS ORDERED: BISACODYL 10 MG RECTAL RECTAL SUPPOSITORY PR PRN (13:45)
[2025-10-20] MEDS ORDERED: NITROGLYCERIN 0.4 MG SUBLINGUAL TABLET #25 SL PRN (14:00)
[2025-10-20] MEDS: HEPARIN SODIUM,PORCINE 5,000 UNITS/ML VIAL SQ SCH (15:23)
[2025-10-20] MEDS: HYDROCODONE/ACETAMINOPHEN 5-325 MG TABLET PO PRN (15:33)
[2025-10-20 16:18] VITALS: BP 122/66; PULSE 82; RESP 18; TEMP 98; O2SAT 98
[2025-10-20] MEDS: MORPHINE SULFATE 4 MG/ML SYRINGE IVP PRN (17:50)
[2025-10-21] MEDS ORDERED: PANTOPRAZOLE SODIUM 40 MG DR TABLET PO SCH (09:00)
== END 2025-10-20 20:21 | DRG 690 ==
LOC: EMS 16:26 → EDBEDREQ 10-17 12:52 → EDBEDREQSVC 10-17 12:52 → EDBEDREQTM 10-17 12:52 → EDBEDREQDT 10-17 12:52 → EDH 10-17 13:10 → 6S 10-18 02:55
PROVIDERS: ADMIT Hospitalist; ATTEND Hospitalist
DX: N39.0 Urinary tract infection, site not specified (principal); F25.9 Schizoaffective disorder, unspecified; I10 Essential (primary) hypertension; J44.9 Chronic obstructive pulmonary disease, unspecified; Z96.653 Presence of artificial knee joint, bilateral; Z20.822 Contact with and (suspected) exposure to COVID-19; I48.91 Unspecified atrial fibrillation; F41.9 Anxiety disorder, unspecified; K21.9 Gastro-esophageal reflux disease without esophagitis; G89.4 Chronic pain syndrome; E78.5 Hyperlipidemia, unspecified; Z79.899 Other long term (current) drug therapy; Z78.1 Physical restraint status; Z87.891 Personal history of nicotine dependence; Z88.6 Allergy status to analgesic agent; Z88.8 Allergy status to other drugs, medicaments and biological substances
CPT/HCPCS: 80053; 80061; 80307; 81001; 83036; 84436; 84443; 85025; 87077; 87081; 87086; 87186; 96372; 97162; 97530; 99285; G0378; G0480; J0696; J1200; J1630; J1644; J1956; J2060; J2270; J3490; J7050